=== PATIENT | female | born 1955 | race Caucasian/White ===

== ENCOUNTER → 2016-09-10 | Outpatient (CLI) | payer OTHER ==
[2015-02-05 14:05] VITALS: BP 151/90
[~2016-09-10] MED LIST: ASPI325T4 PO; CRESTOR10 MG PO; ESOM40CA PO; LEVO175T5 PO; LISI-334 PO
[2016-09-10 08:19] LABS: ALBUMIN 3.7 g/dL (3.4-5.0); CALCIUM 9.8 mg/dL (8.5-10.1); CHOLESTEROL/HDL RATIO 3.5; CREATININE 0.8 mg/dL (0.6-1.0); GFR 72.9; POTASSIUM 4.2 mmol/L (3.5-5.1); TOTAL BILIRUBIN 0.5 mg/dL (0.2-1.0); TOTAL PROTEIN 7.3 g/dL (6.4-8.2)
[2016-09-10 08:27] LABS: FREE T4 1.65 ng/dL (0.76-1.46)
== END | disposition home or self-care (01) ==
LOC: SPEC 07:31
PROVIDERS: ATTEND Nurse Practitioner
DX: I10 Essential (primary) hypertension (principal); E78.5 Hyperlipidemia, unspecified; E03.9 Hypothyroidism, unspecified
CPT/HCPCS: 36415; 80053; 80061; 84439; 84443

== ENCOUNTER → 2016-11-20 | Outpatient (CLI) | payer OTHER ==
[2015-02-05 14:05] VITALS: BP 151/90
[~2016-11-20] MED LIST changes: -ASPI325T4 PO; +ASPI325T8 PO
[2016-11-20 08:51] LABS: ALBUMIN 3.9 g/dL (3.4-5.0); ALBUMIN/GLOBULIN RATIO 1.1 (1.0-1.7); CALCIUM 9.2 mg/dL (8.5-10.1); CREATININE 0.9 mg/dL (0.6-1.0); GFR 63.7; TOTAL BILIRUBIN 0.5 mg/dL (0.2-1.0); TOTAL PROTEIN 7.3 g/dL (6.4-8.2)
[2016-11-20 09:07] LABS: CHOLESTEROL/HDL RATIO 3.4
[2016-11-20 10:25] LABS: BILIRUBIN,URINE NEGATIVE (NEG); GLUCOSE,URINE NEGATIVE (NEG); NITRITE,URINE NEGATIVE (NEG); PH,URINE 5.5; PROTEIN,URINE NEGATIVE (NEG-TRACE); UROBILINOGEN,URINE 0.2 mg/dL (0.2 mg/dL)
[2016-11-20 10:57] LABS: BACTERIA,URINE 0 /HPF (0-FEW); RBC,URINE 0 /HPF (0-2); SQUAMOUS EPITHELIAL CELL,UR FEW /LPF
[2016-11-20 16:21] LABS: THYROXINE 11.3 ug/dL (4.5-12.0)
[2016-11-21 17:20] LABS: VITAMIN D25(OH)TOTAL 25.7 ng/mL (30.0-100.0)
== END | disposition home or self-care (01) ==
LOC: SPEC 07:40
PROVIDERS: ATTEND Nurse Practitioner
DX: E03.9 Hypothyroidism, unspecified (principal); E78.5 Hyperlipidemia, unspecified; E55.9 Vitamin D deficiency, unspecified; R53.83 Other fatigue
CPT/HCPCS: 36415; 80053; 80061; 81001; 82306; 84436; 84443; 87086

== ENCOUNTER → 2017-04-08 | Outpatient (CLI) | payer OTHER ==
[2015-02-05 14:05] VITALS: BP 151/90
--- NOTE | 2017-04-08 11:19 | RAD ---
DATE: 04/08/2017 EXAM: DIGITAL SCREEN BILAT W/CAD HISTORY: Routine screening COMPARISON: . As mammograms from 2016 and 2014 This study was interpreted with the benefit of Computerized Aided Detection (CAD). FINDINGS: Breast Density: FATTY The Breast Parenchyma is primarily fatty replaced. Breast parenchyma level density A.. The skin and nipples are within normal limits. Benign bilateral calcifications. No suspicious calcifications, spiculated masses or areas of architectural distortion. IMPRESSION: No mammographic evidence of malignancy. Stable mammogram. BI-RADS CATEGORY: 2 BENIGN FINDING(S) RECOMMENDED FOLLOW-UP: 12M 12 MONTH FOLLOW-UP PQRS compliance statement: Patient information was entered into a reminder system with a target due date 04/08/2018 for the next mammogram. Mammography is a sensitive method for finding small breast cancers, but it does not detect them all and is not a substitute for careful clinical examination. A negative mammogram does not negate a clinically suspicious finding and should not result in delay in biopsying a clinically suspicious abnormality. "Our facility is accredited by the [employer] Mammography [employer]."
== END | disposition home or self-care (01) ==
LOC: MAMMO 09:57
PROVIDERS: ATTEND Family Medicine
DX: Z12.31 Encounter for screening mammogram for malignant neoplasm of breast (principal)
CPT/HCPCS: G0202; 77067

== ENCOUNTER → 2017-04-12 | Outpatient (CLI) | payer OTHER ==
[2015-02-05 14:05] VITALS: BP 151/90
[2017-04-12 10:49] LABS: ALBUMIN/GLOBULIN RATIO 1.3 (1.0-1.7); CALCIUM 9.7 mg/dL (8.5-10.1); CHOLESTEROL/HDL RATIO 2.7; GFR 56.2; POTASSIUM 3.7 mmol/L (3.5-5.1); TOTAL BILIRUBIN 0.5 mg/dL (0.2-1.0); TOTAL PROTEIN 7.2 g/dL (6.4-8.2)
== END | disposition home or self-care (01) ==
LOC: LAB 10:01
PROVIDERS: ATTEND Nurse Practitioner
DX: Z13.1 Encounter for screening for diabetes mellitus (principal); E03.9 Hypothyroidism, unspecified; E78.5 Hyperlipidemia, unspecified
CPT/HCPCS: 36415; 80053; 80061; 83036; 84436; 84443

== ENCOUNTER → 2018-04-11 | Outpatient (CLI) | payer OTHER ==
[2015-02-05 14:05] VITALS: BP 151/90
--- NOTE | 2018-04-12 09:12 | RAD ---
DATE: 04/11/2018 EXAM: MAMMO CARLOS SCREENING BILATERAL HISTORY: Routine screening COMPARISON: 04/08/2017 This study was interpreted with the benefit of Computerized Aided Detection (CAD). Breast Density: FATTY The breast parenchyma is primarily fatty replaced. Breast parenchyma level density A. FINDINGS: 2-D and 3-D tomosynthesis imaging was performed in CC and MLO projections. No new or enlarging breast densities are seen. Benign type calcifications are present. No suspicious microcalcifications have developed. IMPRESSION: Stable mammograms without evidence of malignancy. BI-RADS CATEGORY: 2 BENIGN FINDING(S) RECOMMENDED FOLLOW-UP: 12M 12 MONTH FOLLOW-UP PQRS compliance statement: Patient information was entered into a reminder system with a target due date for the next mammogram. Mammography is a sensitive method for finding small breast cancers, but it does not detect them all and is not a substitute for careful clinical examination. A negative mammogram does not negate a clinically suspicious finding and should not result in delay in biopsying a clinically suspicious abnormality. "Our facility is accredited by the [employer] Mammography Program."
== END | disposition home or self-care (01) ==
LOC: MAMMO 08:27
PROVIDERS: ATTEND Family Medicine
DX: Z12.31 Encounter for screening mammogram for malignant neoplasm of breast (principal)
CPT/HCPCS: 77063; 77067

== ENCOUNTER → 2018-05-23 | Outpatient (CLI) | payer OTHER ==
[2015-02-05 14:05] VITALS: BP 151/90
[~2018-05-23] MED LIST changes: +CHOL10003 PO; +CRESTOR20 MG PO; +LEVO150T5 PO; +PANT20TA2 PO; +SUMA100T4 PO
[2018-05-23 09:52] LABS: BASO # 0.1 x10^3/uL (0.0-0.2); BASO % 1 % (0-3); EOS # 0.1 x10^3/uL (0.0-0.7); EOS % 1 % (0-3); HEMATOCRIT 46.7 % (36.0-47.0); HEMOGLOBIN 16.2 g/dL (12.0-15.5); LYMPH # 2.6 x10^3/uL (1.0-4.8); LYMPH % 34 % (24-48); MEAN CORPUSCULAR HEMOGLOBIN 33 pg (25-35); MEAN CORPUSCULAR HGB CONC 35 g/dL (31-37); MEAN CORPUSCULAR VOLUME 95 fL (79-100); MONO # 0.5 x10^3/uL (0.0-1.1); MONO % 7 % (0-9); NEUT # 4.3 x10^3uL (1.8-7.7); NEUT % 57 % (31-73); PLATELET COUNT 170 x10^3/uL (140-400); RED BLOOD COUNT 4.93 x10^6/uL (3.50-5.40); RED CELL DISTRIBUTION WIDTH 13.1 % (11.5-14.5); WHITE BLOOD COUNT 7.6 x10^3/uL (4.0-11.0)
[2018-05-23 10:04] LABS: PROTHROMBIN TIME PATIENT 12.3 SEC (11.7-14.0)
[2018-05-23 10:08] LABS: ALBUMIN 3.8 g/dL (3.4-5.0); CALCIUM 9.9 mg/dL (8.5-10.1); POTASSIUM 4.2 mmol/L (3.5-5.1)
[2018-05-23 13:24] LABS: BILIRUBIN,URINE NEGATIVE (NEG); CLARITY,URINE CLEAR; COLOR,URINE YELLOW; NITRITE,URINE NEGATIVE (NEG); PH,URINE 6.5; PROTEIN,URINE NEGATIVE (NEG-TRACE); UROBILINOGEN,URINE 0.2 mg/dL (0.2 mg/dL)
[2018-05-23 13:33] LABS: BACTERIA,URINE 0 /HPF (0-FEW); RBC,URINE 0 /HPF (0-2); SQUAMOUS EPITHELIAL CELL,UR FEW /LPF; WBC,URINE 0 /HPF (0-4)
--- NOTE | 2018-05-23 13:44 | EKG ---
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
--- NOTE | 2018-05-23 18:11 | RAD ---
EXAM: PA and Lateral Views of the Chest DATE: 05/23/2018 2:08 PM INDICATION: pre-op knee replacement 06/07, hypertension COMPARISON: No Prior FINDINGS: The heart is not enlarged. Mediastinal and hilar contours are normal. Aortic calcifications are seen. No focal parenchymal airspace opacity. No pleural effusion or pneumothorax. IMPRESSION: No evidence for acute cardiopulmonary process. Electronically signed by: Gregor Snell MD (05/23/2018 6:07 PM) [facility]
== END | disposition home or self-care (01) ==
LOC: SURGPAT 14:16
PROVIDERS: ATTEND Orthopaedic Surgery
DX: Z01.818 Encounter for other preprocedural examination (principal); M17.11 Unilateral primary osteoarthritis, right knee; I70.0 Atherosclerosis of aorta; E78.5 Hyperlipidemia, unspecified
CPT/HCPCS: 36415; 71046; 80048; 81001; 82040; 85025; 85610; 85651; 85730; 87641; 93005

== ENCOUNTER 2019-05-12 00:24 | Inpatient (IN) | payer OTHER ==
[~2019-05-12] VITALS: Ht 160 cm; Wt 109.8 kg
[~2019-05-12 00:24] MED LIST changes: +HYDR-2759 PO; +WARF4TAB68 PO
[2019-05-12 01:15] LABS: BASO % 0 % (0-3); EOS % 1 % (0-3); HEMATOCRIT 42.8 % (36.0-47.0); HEMOGLOBIN 14.2 g/dL (12.0-15.5); LYMPH # 1.4 x10^3/uL (1.0-4.8); LYMPH % 19 % (24-48); MEAN CORPUSCULAR HEMOGLOBIN 30 pg (25-35); MEAN CORPUSCULAR HGB CONC 33 g/dL (31-37); MEAN CORPUSCULAR VOLUME 89 fL (79-100); MONO # 0.5 x10^3/uL (0.0-1.1); MONO % 6 % (0-9); NEUT # 5.7 x10^3/uL (1.8-7.7); NEUT % 74 % (31-73); PLATELET COUNT 195 x10^3/uL (140-400); RED BLOOD COUNT 4.79 x10^6/uL (3.50-5.40); WHITE BLOOD COUNT 7.7 x10^3/uL (4.0-11.0)
[2019-05-12 01:20] LABS: CALCIUM 9.1 mg/dL (8.5-10.1); CREATININE 1.1 mg/dL (0.6-1.0); POTASSIUM 3.6 mmol/L (3.5-5.1)
[2019-05-12 01:25] LABS: ALBUMIN 3.4 g/dL (3.4-5.0); ALBUMIN/GLOBULIN RATIO 1.2 (1.0-1.7); MAGNESIUM 1.5 mg/dL (1.8-2.4); TOTAL BILIRUBIN 0.5 mg/dL (0.2-1.0); TOTAL PROTEIN 6.2 g/dL (6.4-8.2)
--- NOTE | 2019-05-12 01:42 | PHYS DOC ---
Past Medical History Past Medical History: GERD, High Cholesterol, Hypertension, Hypothyroid, Migraines Past Surgical History: Knee Replacement Additional Past Surgical Histo: D&C, JAW SURGERY, RIGHT KNEE REPLACEMENT Alcohol Use: None Drug Use: None Adult General Chief Complaint Chief Complaint: DIZZY/LIGHT HEADED HPI HPI 64-year-old female with underlying history of hypertension, hypothyroidism presents to the emergency department with complaints of dizziness that started around 10 PM. This was sudden onset, she states the dizziness comes in waves. Nausea associated with it. She states the room started spinning. She denies any fever, headache. Movements of her eyes makes the dizziness worse. Review of Systems Review of Systems Constitutional: Denies fever or chills [] Eyes: Denies change in visual acuity, redness, or eye pain [] HENT: Denies nasal congestion or sore throat [] Respiratory: Denies cough or shortness of breath [] Cardiovascular: No additional information not addressed in HPI [] GI: Denies abdominal pain, + nausea, no vomiting, bloody stools or diarrhea [] : Denies dysuria or hematuria [] Neurologic: Denies headache, focal weakness or sensory changes [] All other systems were reviewed and found to be within normal limits, except as documented in this note. Current Medications Current Medications Current Medications Medications (Trade) Dose Ordered Sig/Rikki Start Time Stop Time Status Last Admin Dose Admin Info (CONTRAST GIVEN -- Rx MONITORING) 1 each PRN DAILY PRN 05/12/19 02:30 05/14/19 02:29 Iohexol (Omnipaque 350 Mg/ml) 75 ml 1X ONCE 05/12/19 02:30 05/12/19 02:31 DC 05/12/19 02:00 75 ML Magnesium Sulfate 50 ml @ 25 mls/hr 1X ONCE 05/12/19 03:00 05/12/19 04:59 DC 05/12/19 03:03 25 MLS/HR Meclizine HCl (Antivert) 25 mg 1X ONCE 05/12/19 04:00 05/12/19 04:01 DC 05/12/19 04:23 25 MG Ondansetron HCl (Zofran) 4 mg 1X ONCE 05/12/19 04:30 05/12/19 04:31 DC 05/12/19 04:23 4 MG Allergies Allergies Allergies Coded Allergies Type Severity Reaction Last Updated Verified codeine Allergy Intermediate Hives, tongue swelling, lortab ok 06/07/18 Yes Physical Exam Physical Exam Constitutional: Well developed, well nourished, no acute distress, non-toxic appearance. [] HENT: Normocephalic, atraumatic, bilateral external ears normal, oropharynx moist, no oral exudates, nose normal. [] Eyes: PERRLA, EOMI, conjunctiva normal, no discharge. [] Neck: Normal range of motion, no tenderness, supple, no stridor. [] Cardiovascular:Heart rate regular rhythm, no murmur [] Lungs & Thorax: Bilateral breath sounds clear to auscultation [] Abdomen: Bowel sounds normal, soft, no tenderness, no masses, no pulsatile masses. [] Skin: Warm, dry, no erythema, no rash. [] Back: No tenderness, no CVA tenderness. [] Extremities: No tenderness, no cyanosis, no clubbing, ROM intact, no edema. [] Neurologic: Alert and oriented X 3, normal motor function, normal sensory function, no focal deficits noted. [] Psychologic: Affect normal, judgement normal, mood normal. [] Current Patient Data Vital Signs Vital Signs Date Time Temp Pulse Resp B/P (MAP) Pulse Ox O2 Delivery O2 Flow Rate FiO2 05/12/19 00:25 97.5 89 20 142/91 (108) 98 Room Air 97.5 Lab Values Laboratory Tests Test 05/12/19 01:04 05/12/19 01:42 White Blood Count 7.7 x10^3/uL (4.0-11.0) Red Blood Count 4.79 x10^6/uL (3.50-5.40) Hemoglobin 14.2 g/dL (12.0-15.5) Hematocrit 42.8 % (36.0-47.0) Mean Corpuscular Volume 89 fL (79-100) Mean Corpuscular Hemoglobin 30 pg (25-35) Mean Corpuscular Hemoglobin Concent 33 g/dL (31-37) Red Cell Distribution Width 14.0 % (11.5-14.5) Platelet Count 195 x10^3/uL (140-400) Neutrophils (%) (Auto) 74 % (31-73) H Lymphocytes (%) (Auto) 19 % (24-48) L Monocytes (%) (Auto) 6 % (0-9) Eosinophils (%) (Auto) 1 % (0-3) Basophils (%) (Auto) 0 % (0-3) Neutrophils # (Auto) 5.7 x10^3/uL (1.8-7.7) Lymphocytes # (Auto) 1.4 x10^3/uL (1.0-4.8) Monocytes # (Auto) 0.5 x10^3/uL (0.0-1.1) Eosinophils # (Auto) 0.0 x10^3/uL (0.0-0.7) Basophils # (Auto) 0.0 x10^3/uL (0.0-0.2) Sodium Level 138 mmol/L (136-145) Potassium Level 3.6 mmol/L (3.5-5.1) Chloride Level 105 mmol/L (98-107) Carbon Dioxide Level 25 mmol/L (21-32) Anion Gap 8 (6-14) Blood Urea Nitrogen 18 mg/dL (7-20) Creatinine 1.1 mg/dL (0.6-1.0) H Estimated GFR (Cockcroft-Gault) 50.0 BUN/Creatinine Ratio 16 (6-20) Glucose Level 141 mg/dL (70-99) H Calcium Level 9.1 mg/dL (8.5-10.1) Magnesium Level 1.5 mg/dL (1.8-2.4) L Total Bilirubin 0.5 mg/dL (0.2-1.0) Aspartate Amino Transferase (AST) 17 U/L (15-37) Alanine Aminotransferase (ALT) 20 U/L (14-59) Alkaline Phosphatase 69 U/L (46-116) Total Protein 6.2 g/dL (6.4-8.2) L Albumin 3.4 g/dL (3.4-5.0) Albumin/Globulin Ratio 1.2 (1.0-1.7) Urine Collection Type Unknown Urine Color Yellow Urine Clarity Cloudy Urine pH 7.0 Urine Specific [place] 1.015 Urine Protein Negative mg/dL (NEG-TRACE) Urine Glucose (UA) Negative mg/dL (NEG) Urine Ketones (Stick) 15 mg/dL (NEG) Urine Blood Negative (NEG) Urine Nitrite Negative (NEG) Urine Bilirubin Negative (NEG) Urine Urobilinogen Dipstick 0.2 mg/dL (0.2 mg/dL) Urine Leukocyte Esterase Negative (NEG) Urine RBC 1-2 /HPF (0-2) Urine WBC 1-4 /HPF (0-4) Urine Squamous Epithelial Cells Mod /LPF Urine Bacteria 0 /HPF (0-FEW) Urine Mucus Mod /LPF Laboratory Tests 05/12/19 01:04 Laboratory Tests 05/12/19 01:04 EKG EKG [] Radiology/Procedures Radiology/Procedures [facility] [address] [place] [address] IMAGING REPORT Signed PATIENT: BRYN MOE ACCOUNT: [id number] : 1955 LOCATION: ER AGE: 64 SEX: F EXAM STATUS: REG ER ORD. PHYSICIAN: ANITA KUHN MD REASON: Dizziness, PROCEDURE: CT ANGIOGRAPHY HEAD AND NECK STUDY: CT angiography of the head and neck INDICATION: Dizziness. COMPARISON: None. TECHNIQUE: Axial CT imaging of the head and neck utilizing angiography protocol and performed after the intravenous administration of 75 cc Omnipaque 350 contrast. Multiplanar reformats and 3D MIP acquisitions were obtained. Encountered areas of stenosis are measured per NASCET criteria. One or more of the following individualized dose reduction techniques were utilized for this examination: 1. Automated exposure control 2. Adjustment of the mA and/or kV according to patient size 3. Use of iterative reconstruction technique. FINDINGS: CTA NECK: The great vessel origins are not included in the [id number]. Patent bilateral common carotid arteries. Mild calcific atherosclerosis at the left bifurcation without flow-limiting stenosis. No flow-limiting stenosis of the right bifurcation. Patent vertebral artery origins. Mild dominance of the left vertebral artery. No dissection or stenosis involving either extracranial vertebral artery. CTA HEAD: The intracranial portion of the study is degraded due to bolus timing and there is poor opacification of the peripheral vasculature. Patent intracranial internal carotid arteries. No flow-limiting stenosis or branch vessel occlusion seen to involve either anterior or middle cerebral arteries throughout the proximal portions. The branches are not well evaluated distally. Dominant left intracranial vertebral artery. Left more so than right calcific atherosclerosis. There appears to be moderate stenosis of the dominant left vertebral artery distal to the region of calcific atherosclerosis such as seen on image 60 series 4. Intermittent luminal irregularity of the nondominant intracranial vertebral artery. Both vertebral arteries contribute to basilar flow. The basilar artery is patent. The right P1 posterior cerebral artery segment is very small in caliber however there appears to be a patent posterior communicating artery with larger caliber of the P2 segment. The posterior tibial arteries are not well evaluated past P2. MISCELLANEOUS: Multifactorial degenerative changes scattered throughout the cervical spine. Bony neural foraminal encroachment is most pronounced on the left at C3-C4 and on the right at C4-C5. Intracranial contents are not well evaluated by technique. IMPRESSION: 1. The intracranial portion of the study is degraded due to bolus timing and there is poor opacification of the distal anterior and posterior cerebral circulations. 2. No flow-limiting stenosis or dissection seen to involve the extracranial carotid or vertebral arteries. 3. 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 Intermittent luminal irregularity of the nondominant right intracranial vertebral artery favored related to atherosclerotic disease. Both vertebral arteries contribute to basilar flow. 4. The right P1 posterior cerebral artery segment is very small in size but this appears related to persistent physiology. The P2 segments remain patent however beyond P2 is not well evaluated. No branch vessel occlusion involving the adequately assessed anterior circulation. If there is concern for an acute ischemic event, MRI is recommended. 5. Multilevel cervical degenerative changes with varying degrees of neural foraminal encroachment appearing severe at a few levels, as above. Electronically signed by: ROXANNE HEAD MD (05/12/2019 3:39 AM) [id number] DICTATED and SIGNED BY: ROXANNE HEAD MD DATE: 05/12/19 0339 [] Course & Med Decision Making Course & Med Decision Making Pertinent Labs and Imaging studies reviewed. (See chart for details) []64-year-old female with underlying history of hypertension, hypothyroidism presents to the emergency department with complaints of dizziness that started around 10 PM. This was sudden onset, she states the dizziness comes in waves. Nausea associated with it. She states the room started spinning. She denies any fever, headache. Movements of her eyes makes the dizziness worse. Labs/Imaging reviewed Magnesium low - replaced in ER CTA negative for acute process Zofran provided by EMS with improvement Dizziness in ER improved however worsened again with ambulation, return of nausea meclizine 25mg po x 1 Given continued symptoms will admit and plan further evaluation with neuro consult Moises Disclaimer Moises Disclaimer This electronic medical record was generated, in whole or in part, using a voice recognition dictation system. Departure Departure Impression: Primary Impression: Dizziness Additional Impression: Nausea & vomiting Disposition: 09 ADMITTED INPATIENT Admitting Physician: NADINE Condition: STABLE Referrals: SOHAM BALL (PCP) Problem Qualifiers Additional Impression: Nausea & vomiting Vomiting type: unspecified Vomiting Intractability: unspecified Qualified Codes: R11.2 - Nausea with vomiting, unspecified ANITA KUHN MD May 12, 2019 01:42
[2019-05-12 01:51] LABS: BILIRUBIN,URINE NEGATIVE (NEG); CLARITY,URINE CLOUDY; COLOR,URINE YELLOW; NITRITE,URINE NEGATIVE (NEG); PROTEIN,URINE NEGATIVE (NEG-TRACE); UROBILINOGEN,URINE 0.2 mg/dL (0.2 mg/dL)
[2019-05-12 01:54] LABS: BACTERIA,URINE 0 /HPF (0-FEW)
[2019-05-12 01:55] LABS: SQUAMOUS EPITHELIAL CELL,UR MOD /LPF
[2019-05-12] MEDS ORDERED: IOHEXOL 350 MG/ML 100 ML VIAL. IV ONE (02:30)
[2019-05-12] MEDS ORDERED: CONTRAST GIVEN. MC PRN (02:30)
[2019-05-12] MEDS ORDERED: MAGNESIUM SULFATE 2GM 50 ML IV ONE (03:00)
--- NOTE | 2019-05-12 03:42 | RAD ---
STUDY: CT angiography of the head and neck INDICATION: Dizziness. COMPARISON: None. TECHNIQUE: Axial CT imaging of the head and neck utilizing angiography protocol and performed after the intravenous administration of 75 cc Omnipaque 350 contrast. Multiplanar reformats and 3D MIP acquisitions were obtained. Encountered areas of stenosis are measured per NASCET criteria. One or more of the following individualized dose reduction techniques were utilized for this examination: 1. Automated exposure control 2. Adjustment of the mA and/or kV according to patient size 3. Use of iterative reconstruction technique. FINDINGS: CTA NECK: The great vessel origins are not included in the [id number]. Patent bilateral common carotid arteries. Mild calcific atherosclerosis at the left bifurcation without flow-limiting stenosis. No flow-limiting stenosis of the right bifurcation. Patent vertebral artery origins. Mild dominance of the left vertebral artery. No dissection or stenosis involving either extracranial vertebral artery. CTA HEAD: The intracranial portion of the study is degraded due to bolus timing and there is poor opacification of the peripheral vasculature. Patent intracranial internal carotid arteries. No flow-limiting stenosis or branch vessel occlusion seen to involve either anterior or middle cerebral arteries throughout the proximal portions. The branches are not well evaluated distally. Dominant left intracranial vertebral artery. Left more so than right calcific atherosclerosis. There appears to be moderate stenosis of the dominant left vertebral artery distal to the region of calcific atherosclerosis such as seen on image 60 series 4. Intermittent luminal irregularity of the nondominant intracranial vertebral artery. Both vertebral arteries contribute to basilar flow. The basilar artery is patent. The right P1 posterior cerebral artery segment is very small in caliber however there appears to be a patent posterior communicating artery with larger caliber of the P2 segment. The posterior tibial arteries are not well evaluated past P2. MISCELLANEOUS: Multifactorial degenerative changes scattered throughout the cervical spine. Bony neural foraminal encroachment is most pronounced on the left at C3-C4 and on the right at C4-C5. Intracranial contents are not well evaluated by technique. IMPRESSION: 1. The intracranial portion of the study is degraded due to bolus timing and there is poor opacification of the distal anterior and posterior cerebral circulations. 2. No flow-limiting stenosis or dissection seen to involve the extracranial carotid or vertebral arteries. 3. 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 Intermittent luminal irregularity of the nondominant right intracranial vertebral artery favored related to atherosclerotic disease. Both vertebral arteries contribute to basilar flow. 4. The right P1 posterior cerebral artery segment is very small in size but this appears related to persistent physiology. The P2 segments remain patent however beyond P2 is not well evaluated. No branch vessel occlusion involving the adequately assessed anterior circulation. If there is concern for an acute ischemic event, MRI is recommended. 5. Multilevel cervical degenerative changes with varying degrees of neural foraminal encroachment appearing severe at a few levels, as above. Electronically signed by: ROXANNE HEAD MD (05/12/2019 3:39 AM) [facility]
[2019-05-12] MEDS ORDERED: MECLIZINE HCL 12.5 MG TABLET. PO ONE (04:00)
[2019-05-12] MEDS ORDERED: ONDANSETRON PF 4 MG/2 ML VIAL. IV ONE (04:30)
[2019-05-12] MEDS ORDERED: ACETAMINOPHEN 325 MG TABLET. PO PRN ×2 (05:30→14:30)
[2019-05-12] MEDS ORDERED: ONDANSETRON PF 4 MG/2 ML VIAL. IV PRN (05:30)
[2019-05-12 07:00] VITALS: BP 138/79
--- NOTE | 2019-05-12 10:37 | NUR ---
SW following. Discussed with RN, pt is from home, works for [employer]. RN advised no SW needs at this time. SW will continue to follow.
[2019-05-12 10:57] LABS: BARBITURATES NEG (NEG); BENZODIAZEPINES NEG (NEG); CANNABINOIDS NEG (NEG); COCAINE NEG (NEG); METHADONE NEG (NEG); OPIATES NEG (NEG); PHENCYCLIDINE NEG (NEG)
[2019-05-12 11:00] VITALS: BP 145/74
[2019-05-12 11:02] LABS: AMPHETAMINE/METHAMPHETAMINE NEG (NEG)
[2019-05-12] MEDS ORDERED: LORazepam 1 MG TABLET PO PRN (11:45)
[2019-05-12] MEDS ORDERED: ONDANSETRON PF 4 MG/2 ML VIAL. IVP PRN (11:45)
--- NOTE | 2019-05-12 11:54 | PDOC1 ---
History and Physical Date of Admission Date of Admission DATE: 05/12/19 TIME: 11:53 Identification/Chief Complaint Chief Complaint seen in er , 64-year-old female with underlying history of hypertension, hypothyroidism presents to the emergency department with complaints of dizziness that started around 10 PM. This was sudden onset, she states the dizziness comes in waves. notes Nausea // She states the room started spinning. 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 just distal to a region of calcific atherosclerosis seen on cta head Past Medical History Past Medical History Past Medical History Past Medical History Past Medical History: GERD, High Cholesterol, Hypertension, Hypothyroid, Migraines, OBESITY Past Surgical History: Knee Replacement Additional Past Surgical Histo: D&C, JAW SURGERY, RIGHT KNEE REPLACEMENT Alcohol Use: None Drug Use: None FHX HTN Cardiovascular: HTN Musculoskeletal: Osteoarthritis Family History Family History: Hypertension Social History Smoke: No ALCOHOL: none Drugs: None Current Problem List Problem List Problems Medical Problems: (1) Dizziness Status: Acute (2) Nausea & vomiting Status: Acute Current Medications Current Medications Current Medications Iohexol (Omnipaque 350 Mg/ml) 75 ml 1X ONCE IV Last administered on 05/12/19at 02:00; Start 05/12/19 at 02:30; Stop 05/12/19 at 02:31; Status DC Info (CONTRAST GIVEN -- Rx MONITORING) 1 each PRN DAILY PRN MC SEE COMMENTS; Start 05/12/19 at 02:30; Stop 05/14/19 at 02:29 Magnesium Sulfate 50 ml @ 25 mls/hr 1X ONCE IV Last administered on 05/12/19at 03:03; Start 05/12/19 at 03:00; Stop 05/12/19 at 04:59; Status DC Meclizine HCl (Antivert) 25 mg 1X ONCE PO Last administered on 05/12/19at 04:23; Start 05/12/19 at 04:00; Stop 05/12/19 at 04:01; Status DC Ondansetron HCl (Zofran) 4 mg 1X ONCE IV Last administered on 05/12/19at 04:23; Start 05/12/19 at 04:30; Stop 05/12/19 at 04:31; Status DC Ondansetron HCl (Zofran) 4 mg PRN Q8HRS PRN IV NAUSEA/VOMITING 1ST CHOICE; Start 05/12/19 at 05:30; Stop 05/13/19 at 05:29 Acetaminophen (Tylenol) 650 mg PRN Q4HRS PRN PO FEVER; Start 05/12/19 at 05:30; Stop 05/13/19 at 05:29 Meclizine HCl (Antivert) 25 mg TID PO ; Start 05/12/19 at 14:00 Lorazepam (Ativan) 1 mg PRN Q6HRS PRN PO ANXIETY / AGITATION; Start 05/12/19 at 11:45 Ondansetron HCl (Zofran) 4 mg PRN Q6HRS PRN IVP NAUSEA/VOMITING; Start 05/12/19 at 11:45 Thiamine Mononitrate (Vitamin B-1) 100 mg DAILY PO ; Start 05/12/19 at 12:00 Active Scripts Active Reported Coumadin (Warfarin Sodium) 4 Mg Tablet 1 Tab PO DAILY Hydrocodone-Acetamin 5-325 mg (Hydrocodone/Acetaminophen) 1 Each Tablet 1 Each PO Q4HRS Sumatriptan Succinate 100 Mg Tablet 100 Mg PO ONCE PRN Vitamin D3 (Cholecalciferol (Vitamin D3)) 1,000 Unit Tablet 2,000 Unit PO DAILY Crestor (Rosuvastatin Calcium) 20 Mg Tablet 20 Mg PO HS Protonix (Pantoprazole Sodium) 20 Mg Tablet.dr 40 Mg PO BID Levothyroxine Sodium 150 Mcg Tablet 1 Tab PO DAILY Allergies Allergies: Coded Allergies: codeine (Verified Allergy, Intermediate, Hives, tongue swelling, lortab ok, 06/07/18) ROS Review of System Review of Systems Review of Systems Constitutional: Denies fever or chills [] Eyes: Denies change in visual acuity, redness, or eye pain [] HENT: Denies nasal congestion or sore throat [] Respiratory: Denies cough or shortness of breath [] Cardiovascular: No additional information not addressed in HPI [] GI: Denies abdominal pain, + nausea, no vomiting, bloody stools or diarrhea [] : Denies dysuria or hematuria [] Neurologic: Denies headache, focal weakness or sensory changes [] 14 pt systems were reviewed and found to be within normal limits, except as documented PSYCHOLOGICAL ROS: No: Anxiety, Behavioral Disorder, Concentration difficultie, Decreased libido, Depression, Disorientation, Hallucinations, Hostility, Irritablity, Memory difficulties, Mood Swings, Obsessive thoughts, Physical a buse, Sexual abuse, Sleep disturbances, Suicidal ideation, Other Respiratory: No: Cough, Hemoptysis, Orthopnea, Pleuritic Pain, Shortness of breath, SOB with excertion, Sputum Changes, Stridor, Tachypnea, Wheezing, Other Cardiovascular: No Chest Pain, No Palpitations, No Orthopnea, No Paroxysmal Noc. Dyspnea, No Edema, No Lt Headedness, No Other Gastrointestinal: Yes Nausea, Yes Vomiting; No Abdominal Pain, No Diarrhea, No Constipation, No Melena, No Hematochezia, No Other Musculoskeletal: Yes Gait Disturbance Neurological: Yes Dizziness, Yes Gait Disturbance Physical Exam Physical Exam Physical Exam Physical Exam Constitutional: Well developed, well nourished, no acute distress, non-toxic appearance. [] HENT: Normocephalic, atraumatic, bilateral external ears normal, oropharynx moist, no oral exudates, nose normal. [] Eyes: PERRLA, EOMI, conjunctiva normal, no discharge. [] Neck: Normal range of motion, no tenderness, supple, no stridor. [] Cardiovascular:Heart rate regular rhythm, no murmur [] Lungs & Thorax: Bilateral breath sounds clear to auscultation [] Abdomen: Bowel sounds normal, soft, no tenderness, no masses, no pulsatile masses. [] Skin: Warm, dry, no erythema, no rash. [] Back: No tenderness, no CVA tenderness. [] Extremities: No tenderness, no cyanosis, no clubbing, ROM intact, no edema. [] Neurologic: Alert and oriented X 3, normal motor function, normal sensory function, no focal deficits noted. [] Psychologic: Affect normal, judgement normal, mood normal. [] General: Alert, Oriented X3, Cooperative, No acute distress HEENT: Atraumatic, EOMI Lungs: Clear to auscultation, Normal air movement Heart: no murmurs Breasts: Not examined Abdomen: Soft PELVIC: Examination not indicated Extremities: No cyanosis Neuro: Normal speech, Cranial nerves 3-12 NL Psych/Mental Status: Mental status NL, Mood NL Vitals Vitals Vital Signs Date Time Temp Pulse Resp B/P (MAP) Pulse Ox O2 Delivery O2 Flow Rate FiO2 05/12/19 07:00 98.0 80 16 138/79 (98) 95 Room Air 98.0 Labs Labs Laboratory Tests Test 05/12/19 01:04 05/12/19 01:42 White Blood Count 7.7 x10^3/uL (4.0-11.0) Red Blood Count 4.79 x10^6/uL (3.50-5.40) Hemoglobin 14.2 g/dL (12.0-15.5) Hematocrit 42.8 % (36.0-47.0) Mean Corpuscular Volume 89 fL (79-100) Mean Corpuscular Hemoglobin 30 pg (25-35) Mean Corpuscular Hemoglobin Concent 33 g/dL (31-37) Red Cell Distribution Width 14.0 % (11.5-14.5) Platelet Count 195 x10^3/uL (140-400) Neutrophils (%) (Auto) 74 % (31-73) Lymphocytes (%) (Auto) 19 % (24-48) Monocytes (%) (Auto) 6 % (0-9) Eosinophils (%) (Auto) 1 % (0-3) Basophils (%) (Auto) 0 % (0-3) Neutrophils # (Auto) 5.7 x10^3/uL (1.8-7.7) Lymphocytes # (Auto) 1.4 x10^3/uL (1.0-4.8) Monocytes # (Auto) 0.5 x10^3/uL (0.0-1.1) Eosinophils # (Auto) 0.0 x10^3/uL (0.0-0.7) Basophils # (Auto) 0.0 x10^3/uL (0.0-0.2) Sodium Level 138 mmol/L (136-145) Potassium Level 3.6 mmol/L (3.5-5.1) Chloride Level 105 mmol/L (98-107) Carbon Dioxide Level 25 mmol/L (21-32) Anion Gap 8 (6-14) Blood Urea Nitrogen 18 mg/dL (7-20) Creatinine 1.1 mg/dL (0.6-1.0) Estimated GFR (Cockcroft-Gault) 50.0 BUN/Creatinine Ratio 16 (6-20) Glucose Level 141 mg/dL (70-99) Calcium Level 9.1 mg/dL (8.5-10.1) Magnesium Level 1.5 mg/dL (1.8-2.4) Total Bilirubin 0.5 mg/dL (0.2-1.0) Aspartate Amino Transf (AST/SGOT) 17 U/L (15-37) Alanine Aminotransferase (ALT/SGPT) 20 U/L (14-59) Alkaline Phosphatase 69 U/L (46-116) Total Protein 6.2 g/dL (6.4-8.2) Albumin 3.4 g/dL (3.4-5.0) Albumin/Globulin Ratio 1.2 (1.0-1.7) Urine Collection Type Unknown Urine Color Yellow Urine Clarity Cloudy Urine pH 7.0 Urine Specific [place] 1.015 Urine Protein Negative mg/dL (NEG-TRACE) Urine Glucose (UA) Negative mg/dL (NEG) Urine Ketones (Stick) 15 mg/dL (NEG) Urine Blood Negative (NEG) Urine Nitrite Negative (NEG) Urine Bilirubin Negative (NEG) Urine Urobilinogen Dipstick 0.2 mg/dL (0.2 mg/dL) Urine Leukocyte Esterase Negative (NEG) Urine RBC 1-2 /HPF (0-2) Urine WBC 1-4 /HPF (0-4) Urine Squamous Epithelial Cells Mod /LPF Urine Bacteria 0 /HPF (0-FEW) Urine Mucus Mod /LPF Urine Opiates Screen Neg (NEG) Urine Methadone Screen Neg (NEG) Urine Barbiturates Neg (NEG) Urine Phencyclidine Screen Neg (NEG) Urine Amphetamine/Methamphetamine Neg (NEG) Urine Benzodiazepines Screen Neg (NEG) Urine Cocaine Screen Neg (NEG) Urine Cannabinoids Screen Neg (NEG) Urine Ethyl Alcohol Neg (NEG) Laboratory Tests Test 05/12/19 01:04 05/12/19 01:42 White Blood Count 7.7 x10^3/uL (4.0-11.0) Red Blood Count 4.79 x10^6/uL (3.50-5.40) Hemoglobin 14.2 g/dL (12.0-15.5) Hematocrit 42.8 % (36.0-47.0) Mean Corpuscular Volume 89 fL (79-100) Mean Corpuscular Hemoglobin 30 pg (25-35) Mean Corpuscular Hemoglobin Concent 33 g/dL (31-37) Red Cell Distribution Width 14.0 % (11.5-14.5) Platelet Count 195 x10^3/uL (140-400) Neutrophils (%) (Auto) 74 % (31-73) Lymphocytes (%) (Auto) 19 % (24-48) Monocytes (%) (Auto) 6 % (0-9) Eosinophils (%) (Auto) 1 % (0-3) Basophils (%) (Auto) 0 % (0-3) Neutrophils # (Auto) 5.7 x10^3/uL (1.8-7.7) Lymphocytes # (Auto) 1.4 x10^3/uL (1.0-4.8) Monocytes # (Auto) 0.5 x10^3/uL (0.0-1.1) Eosinophils # (Auto) 0.0 x10^3/uL (0.0-0.7) Basophils # (Auto) 0.0 x10^3/uL (0.0-0.2) Sodium Level 138 mmol/L (136-145) Potassium Level 3.6 mmol/L (3.5-5.1) Chloride Level 105 mmol/L (98-107) Carbon Dioxide Level 25 mmol/L (21-32) Anion Gap 8 (6-14) Blood Urea Nitrogen 18 mg/dL (7-20) Creatinine 1.1 mg/dL (0.6-1.0) Estimated GFR (Cockcroft-Gault) 50.0 BUN/Creatinine Ratio 16 (6-20) Glucose Level 141 mg/dL (70-99) Calcium Level 9.1 mg/dL (8.5-10.1) Magnesium Level 1.5 mg/dL (1.8-2.4) Total Bilirubin 0.5 mg/dL (0.2-1.0) Aspartate Amino Transf (AST/SGOT) 17 U/L (15-37) Alanine Aminotransferase (ALT/SGPT) 20 U/L (14-59) Alkaline Phosphatase 69 U/L (46-116) Total Protein 6.2 g/dL (6.4-8.2) Albumin 3.4 g/dL (3.4-5.0) Albumin/Globulin Ratio 1.2 (1.0-1.7) Urine Collection Type Unknown Urine Color Yellow Urine Clarity Cloudy Urine pH 7.0 Urine Specific [place] 1.015 Urine Protein Negative mg/dL (NEG-TRACE) Urine Glucose (UA) Negative mg/dL (NEG) Urine Ketones (Stick) 15 mg/dL (NEG) Urine Blood Negative (NEG) Urine Nitrite Negative (NEG) Urine Bilirubin Negative (NEG) Urine Urobilinogen Dipstick 0.2 mg/dL (0.2 mg/dL) Urine Leukocyte Esterase Negative (NEG) Urine RBC 1-2 /HPF (0-2) Urine WBC 1-4 /HPF (0-4) Urine Squamous Epithelial Cells Mod /LPF Urine Bacteria 0 /HPF (0-FEW) Urine Mucus Mod /LPF Urine Opiates Screen Neg (NEG) Urine Methadone Screen Neg (NEG) Urine Barbiturates Neg (NEG) Urine Phencyclidine Screen Neg (NEG) Urine Amphetamine/Methamphetamine Neg (NEG) Urine Benzodiazepines Screen Neg (NEG) Urine Cocaine Screen Neg (NEG) Urine Cannabinoids Screen Neg (NEG) Urine Ethyl Alcohol Neg (NEG) Images Images REASON: Dizziness, PROCEDURE: CT ANGIOGRAPHY HEAD AND NECK STUDY: CT angiography of the head and neck INDICATION: Dizziness. COMPARISON: None. TECHNIQUE: Axial CT imaging of the head and neck utilizing angiography protocol and performed after the intravenous administration of 75 cc Omnipaque 350 contrast. Multiplanar reformats and 3D MIP acquisitions were obtained. Encountered areas of stenosis are measured per NASCET criteria. One or more of the following individualized dose reduction techniques were utilized for this examination: 1. Automated exposure control 2. Adjustment of the mA and/or kV according to patient size 3. Use of iterative reconstruction technique. FINDINGS: CTA NECK: The great vessel origins are not included in the [id number]. Patent bilateral common carotid arteries. Mild calcific atherosclerosis at the left bifurcation without flow-limiting stenosis. No flow-limiting stenosis of the right bifurcation. Patent vertebral artery origins. Mild dominance of the left vertebral artery. No dissection or stenosis involving either extracranial vertebral artery. CTA HEAD: The intracranial portion of the study is degraded due to bolus timing and there is poor opacification of the peripheral vasculature. Patent intracranial internal carotid arteries. No flow-limiting stenosis or branch vessel occlusion seen to involve either anterior or middle cerebral arteries throughout the proximal portions. The branches are not well evaluated distally. Dominant left intracranial vertebral artery. Left more so than right calcific atherosclerosis. There appears to be moderate stenosis of the dominant left vertebral artery distal to the region of calcific atherosclerosis such as seen on image 60 series 4. Intermittent luminal irregularity of the nondominant intracranial vertebral artery. Both vertebral arteries contribute to basilar flow. The basilar artery is patent. The right P1 posterior cerebral artery segment is very small in caliber however there appears to be a patent posterior communicating artery with larger caliber of the P2 segment. The posterior tibial arteries are not well evaluated past P2. MISCELLANEOUS: Multifactorial degenerative changes scattered throughout the cervical spine. Bony neural foraminal encroachment is most pronounced on the left at C3-C4 and on the right at C4-C5. Intracranial contents are not well evaluated by technique. IMPRESSION: 1. The intracranial portion of the study is degraded due to bolus timing and there is poor opacification of the distal anterior and posterior cerebral circulations. 2. No flow-limiting stenosis or dissection seen to involve the extracranial carotid or vertebral arteries. 3. 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 Intermittent luminal irregularity of the nondominant right intracranial vertebral artery favored related to atherosclerotic disease. Both vertebral arteries contribute to basilar flow. 4. The right P1 posterior cerebral artery segment is very small in size but this appears related to persistent physiology. The P2 segments remain patent however beyond P2 is not well evaluated. No branch vessel occlusion involving the adequately assessed anterior circulation. If there is concern for an acute ischemic event, MRI is recommended. 5. Multilevel cervical degenerative changes with varying degrees of neural foraminal encroachment appearing severe at a few levels, as above. Electronically signed by: ROXANNE HEAD MD (05/12/2019 3:39 AM) [facility] DICTATED and SIGNED BY: ROXANNE HEAD MD DATE: 05/12/19 0339 VTE Prophylaxis Ordered VTE Prophylaxis Devices: Yes VTE Pharmacological Prophylaxi: Yes Assessment/Plan Assessment/Plan IMPRESSION: 1. The intracranial portion degraded due to bolus timing and there is poor opacification of the distal anterior and posterior cerebral circulations. on cta 2. No flow-limiting stenosis or dissection seen to involve the extracranial carotid or vertebral arteries. 3. 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 luminal irregularity of the nondominant right intracranial vertebral artery favored related to atherosclerotic disease. Both vertebral arteries contribute to basilar flow. 6. The right P1 posterior cerebral artery segment is very small in size but this appears related to persistent physiology. The P2 segments remain patent however beyond P2 is not well evaluated. No branch vessel occlusion involving the adequately assessed anterior circulation.{ If there is concern for an acute ischemic event, MRI is recommended. } 7. Multilevel cervical degenerative changes with varying degrees of neural foraminal encroachment appearing severe at a few levels, 8. HYPOMAGNESEMIA 9. MORBID OBESITY PLAN ADMIT TELE NEUROLOGY CONSULT REPLACE MG IV bedrest ASA PT/OT 74 MIN PT EXAM, CHART REVIEW, > 50% OF TIME SPENT WITH EXAM, CHART REVIEW, PT CARE COORDINATION FREDA ANGEL MD May 12, 2019 11:54
[2019-05-12] MEDS: THIAMINE 100 MG TABLET. PO SCH (13:01)
--- NOTE | 2019-05-12 14:21 | PDOC2 ---
NEUROLOGY CONSULT Date of Admission Date of Admission DATE: 05/12/19 TIME: 14:09 Reason for Consult Reason for Consult: IMPRESSION: Dizziness, sudden onset. Light headiness. Vertigo symptoms. Unbalance. HTN. Hypothyroidism. GERD. Chronic migraine headache, Hx. Obesity. RECOMMENDATIONS/PLAN: Brain MRI w/wo contrast. ASA daily. Meclizine 25 mg tid. Zofran 4 mg IV q6h PRN. Ativan 1 mg IV q4-6h PRN. Lab: see orders. OT/PT. HISTORY OF THE PRESENT ILLNESS: This is a 64-year-old female patient with history of hypertension, hypothyroidism who was brought to the emergency department of [facility] with complaints of sudden new onset symptoms of dizziness that started in the afternoon and again around 10 PM on 05/11/19. This was sudden onset, she states the dizziness comes in waves and associated with nausea. She stated that the room was spinning with sense of self spinning. She denies fever, headache. Move ments of her eyes makes the dizziness worse. PAST MEDICAL HISTORY: GERD, High Cholesterol, Hypertension, Hypothyroid, Migraines, OBESITY PAST SURGERY HISTORY: Knee Replacement, D&C, JAW SURGERY, RIGHT KNEE REPLACEMENT ALLERGY: NKDA Unknown MEDICATIONS: Refer to [facility] FAMILY HISTORY: HTN SOCIAL HISTORY: Lives alt home. Denies smoking, drinking, and illicit drug use. REVIEW OF SYSTEMS: Constitutional: Obesity. Head: No traumatic brain or head injury. Skin: No edema, or rash. Ear: No infection. Eyes: No vision loss or color blindness. Nose: No bleeding or purulent discharges. Hearing: No hearing decrease. Neck: No injury. Breast: No history of cancer, masses,or discharges. Cardiac: HTN. Pulmonary: No COPD. GI: GERD. Urinary/genital: UTI. Endocrinologic: Morbid obesity. Skeletomuscular: No muscular atrophy, deformity. Neurological: see HP. Psychiatric: Denies drug use/abuse. Otherwise, not [id number] review of systems. PHYSICAL EXAMINATION: General appearance is in subacute distress. HEENT: Normocephalic and nontraumatic. Eyes, nose, ears, and throat are unremarkable. Neck is supple. No lymphadenopathy. No bruits are heard over the carotid artery. No crepitus. Cardiovascular: S1, S2, regular rate and rhythm. Pulmonary: Clear to auscultation bilaterally. Abdomen: Bowel sounds are positive. Abdomen is soft, nontender, and nondistended. Extremities: No rash, lesions, or edema. No restriction of range of motion NEUROLOGICAL EXAMINATION: Alert Horizontal nystagmus elicited. Oriented to time, place and person. PERRL. EOMI. CN: no focal findings. Muscle tone: within normal. Muscle strength: 5 DTR: 2 Plantar reflex: Flexor response bilaterally Gait: not examined in bed. Sensory exam: no abnormal findings. No cerebellar signs elicited. F-T-N test fine. Current Medications Current Medications Current Medications Iohexol (Omnipaque 350 Mg/ml) 75 ml 1X ONCE IV Last administered on 05/12/19at 02:00; Start 05/12/19 at 02:30; Stop 05/12/19 at 02:31; Status DC Info (CONTRAST GIVEN -- Rx MONITORING) 1 each PRN DAILY PRN MC SEE COMMENTS; Start 05/12/19 at 02:30; Stop 05/14/19 at 02:29 Magnesium Sulfate 50 ml @ 25 mls/hr 1X ONCE IV Last administered on 05/12/19at 03:03; Start 05/12/19 at 03:00; Stop 05/12/19 at 04:59; Status DC Meclizine HCl (Antivert) 25 mg 1X ONCE PO Last administered on 05/12/19at 04:23; Start 05/12/19 at 04:00; Stop 05/12/19 at 04:01; Status DC Ondansetron HCl (Zofran) 4 mg 1X ONCE IV Last administered on 05/12/19at 04:23; Start 05/12/19 at 04:30; Stop 05/12/19 at 04:31; Status DC Ondansetron HCl (Zofran) 4 mg PRN Q8HRS PRN IV NAUSEA/VOMITING 1ST CHOICE; Start 05/12/19 at 05:30; Stop 05/13/19 at 05:29 Acetaminophen (Tylenol) 650 mg PRN Q4HRS PRN PO FEVER; Start 05/12/19 at 05:30; Stop 05/13/19 at 05:29 Meclizine HCl (Antivert) 25 mg TID PO ; Start 05/12/19 at 14:00 Lorazepam (Ativan) 1 mg PRN Q6HRS PRN PO ANXIETY / AGITATION Last administered on 05/12/19at 13:01; Start 05/12/19 at 11:45 Ondansetron HCl (Zofran) 4 mg PRN Q6HRS PRN IVP NAUSEA/VOMITING; Start 05/12/19 at 11:45 Thiamine Mononitrate (Vitamin B-1) 100 mg DAILY PO Last administered on 05/12/19at 13:01; Start 05/12/19 at 12:00 Active Scripts Active Reported Coumadin (Warfarin Sodium) 4 Mg Tablet 1 Tab PO DAILY Hydrocodone-Acetamin 5-325 mg (Hydrocodone/Acetaminophen) 1 Each Tablet 1 Each PO Q4HRS Sumatriptan Succinate 100 Mg Tablet 100 Mg PO ONCE PRN Vitamin D3 (Cholecalciferol (Vitamin D3)) 1,000 Unit Tablet 2,000 Unit PO DAILY Crestor (Rosuvastatin Calcium) 20 Mg Tablet 20 Mg PO HS Protonix (Pantoprazole Sodium) 20 Mg Tablet.dr 40 Mg PO BID Levothyroxine Sodium 150 Mcg Tablet 1 Tab PO DAILY Allergies Allergies: Allergies Coded Allergies Type Severity Reaction Last Updated Verified codeine Allergy Intermediate Hives, tongue swelling, lortab ok 06/07/18 Yes ROS Review of System The patient denies any associated fevers, chills, headache, ear pain, rhinorrhea, sore throat, stiff neck, productive cough, chest pain, shortness of breath, back or flank pain, abdominal pain, nausea, vomiting, diarrhea, constipation, dysuria, rash, numbness, weakness, tingling, incontinence, difficulty ambulating, or diaphoresis. Physical Exam Physical Exam General: Well developed, well nourished, no acute distress, well appearing HEENT: Pupils equally round and reactive to light, EOMI, no discharge, normal conjunctiva Neck: Supple, no nuchal rigidity, no JVD, trachea midline, no tenderness Cardiac: RRR, no murmurs, no gallops, no rubs Chest/Lungs: CTAB, no wheeze, no rhonchi, no crackles Abdomen: soft, non-distended, no guarding, no peritoneal signs, non-tender Back: No tenderness Extremities: no edema, pulses intact, non-tender,capillary refill <3 sec bilateral upper and lower extremities, Neuro: Alert and oriented x 4, no focal deficits, normal speech Vitals Vitals: Vital Signs Date Time Temp Pulse Resp B/P (MAP) Pulse Ox O2 Delivery O2 Flow Rate FiO2 05/12/19 11:00 98.3 73 16 145/74 (97) 95 Room Air 98.3 Labs Labs Laboratory Tests Test 05/12/19 01:04 05/12/19 01:42 White Blood Count 7.7 x10^3/uL (4.0-11.0) Red Blood Count 4.79 x10^6/uL (3.50-5.40) Hemoglobin 14.2 g/dL (12.0-15.5) Hematocrit 42.8 % (36.0-47.0) Mean Corpuscular Volume 89 fL (79-100) Mean Corpuscular Hemoglobin 30 pg (25-35) Mean Corpuscular Hemoglobin Concent 33 g/dL (31-37) Red Cell Distribution Width 14.0 % (11.5-14.5) Platelet Count 195 x10^3/uL (140-400) Neutrophils (%) (Auto) 74 % (31-73) Lymphocytes (%) (Auto) 19 % (24-48) Monocytes (%) (Auto) 6 % (0-9) Eosinophils (%) (Auto) 1 % (0-3) Basophils (%) (Auto) 0 % (0-3) Neutrophils # (Auto) 5.7 x10^3/uL (1.8-7.7) Lymphocytes # (Auto) 1.4 x10^3/uL (1.0-4.8) Monocytes # (Auto) 0.5 x10^3/uL (0.0-1.1) Eosinophils # (Auto) 0.0 x10^3/uL (0.0-0.7) Basophils # (Auto) 0.0 x10^3/uL (0.0-0.2) Sodium Level 138 mmol/L (136-145) Potassium Level 3.6 mmol/L (3.5-5.1) Chloride Level 105 mmol/L (98-107) Carbon Dioxide Level 25 mmol/L (21-32) Anion Gap 8 (6-14) Blood Urea Nitrogen 18 mg/dL (7-20) Creatinine 1.1 mg/dL (0.6-1.0) Estimated GFR (Cockcroft-Gault) 50.0 BUN/Creatinine Ratio 16 (6-20) Glucose Level 141 mg/dL (70-99) Calcium Level 9.1 mg/dL (8.5-10.1) Magnesium Level 1.5 mg/dL (1.8-2.4) Total Bilirubin 0.5 mg/dL (0.2-1.0) Aspartate Amino Transf (AST/SGOT) 17 U/L (15-37) Alanine Aminotransferase (ALT/SGPT) 20 U/L (14-59) Alkaline Phosphatase 69 U/L (46-116) Total Protein 6.2 g/dL (6.4-8.2) Albumin 3.4 g/dL (3.4-5.0) Albumin/Globulin Ratio 1.2 (1.0-1.7) Urine Collection Type Unknown Urine Color Yellow Urine Clarity Cloudy Urine pH 7.0 Urine Specific [place] 1.015 Urine Protein Negative mg/dL (NEG-TRACE) Urine Glucose (UA) Negative mg/dL (NEG) Urine Ketones (Stick) 15 mg/dL (NEG) Urine Blood Negative (NEG) Urine Nitrite Negative (NEG) Urine Bilirubin Negative (NEG) Urine Urobilinogen Dipstick 0.2 mg/dL (0.2 mg/dL) Urine Leukocyte Esterase Negative (NEG) Urine RBC 1-2 /HPF (0-2) Urine WBC 1-4 /HPF (0-4) Urine Squamous Epithelial Cells Mod /LPF Urine Bacteria 0 /HPF (0-FEW) Urine Mucus Mod /LPF Urine Opiates Screen Neg (NEG) Urine Methadone Screen Neg (NEG) Urine Barbiturates Neg (NEG) Urine Phencyclidine Screen Neg (NEG) Urine Amphetamine/Methamphetamine Neg (NEG) Urine Benzodiazepines Screen Neg (NEG) Urine Cocaine Screen Neg (NEG) Urine Cannabinoids Screen Neg (NEG) Urine Ethyl Alcohol Neg (NEG) Laboratory Tests Test 05/12/19 01:04 05/12/19 01:42 White Blood Count 7.7 x10^3/uL (4.0-11.0) Red Blood Count 4.79 x10^6/uL (3.50-5.40) Hemoglobin 14.2 g/dL (12.0-15.5) Hematocrit 42.8 % (36.0-47.0) Mean Corpuscular Volume 89 fL (79-100) Mean Corpuscular Hemoglobin 30 pg (25-35) Mean Corpuscular Hemoglobin Concent 33 g/dL (31-37) Red Cell Distribution Width 14.0 % (11.5-14.5) Platelet Count 195 x10^3/uL (140-400) Neutrophils (%) (Auto) 74 % (31-73) Lymphocytes (%) (Auto) 19 % (24-48) Monocytes (%) (Auto) 6 % (0-9) Eosinophils (%) (Auto) 1 % (0-3) Basophils (%) (Auto) 0 % (0-3) Neutrophils # (Auto) 5.7 x10^3/uL (1.8-7.7) Lymphocytes # (Auto) 1.4 x10^3/uL (1.0-4.8) Monocytes # (Auto) 0.5 x10^3/uL (0.0-1.1) Eosinophils # (Auto) 0.0 x10^3/uL (0.0-0.7) Basophils # (Auto) 0.0 x10^3/uL (0.0-0.2) Sodium Level 138 mmol/L (136-145) Potassium Level 3.6 mmol/L (3.5-5.1) Chloride Level 105 mmol/L (98-107) Carbon Dioxide Level 25 mmol/L (21-32) Anion Gap 8 (6-14) Blood Urea Nitrogen 18 mg/dL (7-20) Creatinine 1.1 mg/dL (0.6-1.0) Estimated GFR (Cockcroft-Gault) 50.0 BUN/Creatinine Ratio 16 (6-20) Glucose Level 141 mg/dL (70-99) Calcium Level 9.1 mg/dL (8.5-10.1) Magnesium Level 1.5 mg/dL (1.8-2.4) Total Bilirubin 0.5 mg/dL (0.2-1.0) Aspartate Amino Transf (AST/SGOT) 17 U/L (15-37) Alanine Aminotransferase (ALT/SGPT) 20 U/L (14-59) Alkaline Phosphatase 69 U/L (46-116) Total Protein 6.2 g/dL (6.4-8.2) Albumin 3.4 g/dL (3.4-5.0) Albumin/Globulin Ratio 1.2 (1.0-1.7) Urine Collection Type Unknown Urine Color Yellow Urine Clarity Cloudy Urine pH 7.0 Urine Specific [place] 1.015 Urine Protein Negative mg/dL (NEG-TRACE) Urine Glucose (UA) Negative mg/dL (NEG) Urine Ketones (Stick) 15 mg/dL (NEG) Urine Blood Negative (NEG) Urine Nitrite Negative (NEG) Urine Bilirubin Negative (NEG) Urine Urobilinogen Dipstick 0.2 mg/dL (0.2 mg/dL) Urine Leukocyte Esterase Negative (NEG) Urine RBC 1-2 /HPF (0-2) Urine WBC 1-4 /HPF (0-4) Urine Squamous Epithelial Cells Mod /LPF Urine Bacteria 0 /HPF (0-FEW) Urine Mucus Mod /LPF Urine Opiates Screen Neg (NEG) Urine Methadone Screen Neg (NEG) Urine Barbiturates Neg (NEG) Urine Phencyclidine Screen Neg (NEG) Urine Amphetamine/Methamphetamine Neg (NEG) Urine Benzodiazepines Screen Neg (NEG) Urine Cocaine Screen Neg (NEG) Urine Cannabinoids Screen Neg (NEG) Urine Ethyl Alcohol Neg (NEG) KIZZY SMITH MD May 12, 2019 14:20
[2019-05-12] MEDS ORDERED: cloNIDine HCL 0.1 MG TABLET PO PRN (14:30)
[2019-05-12] MEDS ORDERED: guaiFENesin ORAL 200 MG/10 ML LIQUID. PO PRN (14:30)
[2019-05-12] MEDS ORDERED: 0.9 % SODIUM CHLORIDE 10 ML DISP.SYRIN. IV PRN (14:30)
[2019-05-12] MEDS ORDERED: LORazepam 0.5 MG TABLET PO PRN (14:30)
[2019-05-12] MEDS ORDERED: DOCUSATE SODIUM 100 MG CAPSULE. PO PRN (14:30)
[2019-05-12] MEDS ORDERED: ALBUTEROL SULFATE 2.5 MG/3 ML NEBU. NEB PRN (14:30)
[2019-05-12 15:37] LABS: PROTHROMBIN TIME PATIENT 12.7 SEC (11.7-14.0)
[2019-05-12] MEDS: MECLIZINE HCL 12.5 MG TABLET. PO SCH ×2 (15:49→21:45)
[2019-05-12] MEDS: ASPIRIN CHEWABLE 81 MG TABLET. PO SCH (15:49)
[2019-05-12] MEDS ORDERED: GADOTERATE 5 MMOL/10ML VIAL. IVP ONE ×2 (16:00)
[2019-05-12 16:45] VITALS: BP 148/27
--- NOTE | 2019-05-12 16:45 | NUR ---
Pt transferred from . Report received from KYA Mcintyre. Pt transported via bed. All belongings with patient at the time of transfer. Pt comfortable, resting in bed, and VSS. Pt family at the bedside during transfer. Will continue to monitor.
[2019-05-12] MEDS: IV NORMAL SALINE 1000ML BAG 1,000 ML IV SCH (16:49)
[2019-05-12] MEDS: PANTOPRAZOLE 40 MG TABLET.DR. PO SCH (16:49)
--- NOTE | 2019-05-12 17:16 | RAD ---
MRI of the Brain without and with Contrast 05/12/2019 Clinical History: Acute dizziness with unsteadiness. Technique: Unenhanced T1-weighted sagittal and axial and FLAIR, T2-weighted, gradient echo and diffusion-weighted axial images of the brain were obtained. After the intravenous administration of 20 cc of Gadavist, enhanced T1-weighted axial, sagittal and coronal images of the brain were obtained. Findings: Comparison is made to the patient's CTA of the head performed earlier today. Images from the study are degraded by patient motion. There is generalized parenchymal atrophy. Patchy and small scattered areas of abnormally increased signal intensity are seen within the periventricular and subcortical white matter of both cerebral hemispheres on the FLAIR and T2-weighted images consistent with areas of mild small vessel ischemic disease. No acute parenchymal abnormality is seen. No abnormal area of contrast enhancement is noted. No extra-axial fluid collection is seen. There is no MRI evidence of acute ischemia/infarction. Mild mucosal thickening is seen scattered throughout the paranasal sinuses. There are minimal bilateral mastoid effusions. Normal flow voids are seen within the major vascular structures surrounding the brain parenchyma. Impression: No acute parenchymal abnormality is seen. Electronically signed by: Devyn Her MD (05/12/2019 5:13 PM) [id number]
[2019-05-12 20:01] VITALS: BP 135/71
[2019-05-12] MEDS: HYDROcodone/APAP 5/325MG 1 TAB TABLET PO PRN (21:44)
[2019-05-12] MEDS: ATORVASTATIN CALCIUM 40 MG TABLET. PO SCH (21:45)
[2019-05-12] MEDS: ENOXAPARIN 40 MG/0.4 ML SYRINGE. SQ SCH (21:45)
[2019-05-12 23:30] VITALS: BP 125/79
[2019-05-13 03:30] VITALS: BP 118/59
[2019-05-13] MEDS: IV NORMAL SALINE 1000ML BAG 1,000 ML IV SCH ×2 (04:50→16:36)
[2019-05-13] MEDS: LEVOTHYROXINE 150 MCG TABLET PO SCH (06:50)
[2019-05-13 07:20] VITALS: BP 144/83
[2019-05-13 08:28] LABS: BASO % 1 % (0-3); EOS # 0.1 x10^3/uL (0.0-0.7); EOS % 1 % (0-3); HEMATOCRIT 42.7 % (36.0-47.0); HEMOGLOBIN 14.1 g/dL (12.0-15.5); LYMPH # 1.8 x10^3/uL (1.0-4.8); LYMPH % 33 % (24-48); MEAN CORPUSCULAR HEMOGLOBIN 30 pg (25-35); MEAN CORPUSCULAR HGB CONC 33 g/dL (31-37); MEAN CORPUSCULAR VOLUME 90 fL (79-100); MONO # 0.4 x10^3/uL (0.0-1.1); MONO % 8 % (0-9); NEUT # 3.1 x10^3/uL (1.8-7.7); NEUT % 57 % (31-73); PLATELET COUNT 193 x10^3/uL (140-400); RED BLOOD COUNT 4.74 x10^6/uL (3.50-5.40); RED CELL DISTRIBUTION WIDTH 14.2 % (11.5-14.5); WHITE BLOOD COUNT 5.5 x10^3/uL (4.0-11.0)
[2019-05-13 08:53] LABS: ALBUMIN 3.2 g/dL (3.4-5.0); ALBUMIN/GLOBULIN RATIO 1.1 (1.0-1.7); CALCIUM 9.1 mg/dL (8.5-10.1); CREATININE 0.8 mg/dL (0.6-1.0); GFR 72.2; POTASSIUM 4.1 mmol/L (3.5-5.1); TOTAL BILIRUBIN 0.6 mg/dL (0.2-1.0); TOTAL PROTEIN 6.2 g/dL (6.4-8.2)
[2019-05-13] MEDS ORDERED: WARFARIN 4 MG TABLET. PO SCH (09:00)
[2019-05-13] MEDS: ASPIRIN CHEWABLE 81 MG TABLET. PO SCH (09:13)
[2019-05-13] MEDS: MECLIZINE HCL 12.5 MG TABLET. PO SCH ×3 (09:14→20:03)
[2019-05-13] MEDS: PANTOPRAZOLE 40 MG TABLET.DR. PO SCH ×2 (09:14→16:36)
[2019-05-13] MEDS: ENOXAPARIN 40 MG/0.4 ML SYRINGE. SQ SCH ×2 (09:14→20:04)
[2019-05-13] MEDS: THIAMINE 100 MG TABLET. PO SCH (09:14)
[2019-05-13] MEDS: CHOLECALCIFEROL (VITAMIN D3) 1,000 UNIT TABLET PO SCH (09:14)
[2019-05-13] MEDS: ONDANSETRON PF 4 MG/2 ML VIAL. IV PRN ×2 (09:17→18:05)
[2019-05-13 11:02] VITALS: BP 138/76
--- NOTE | 2019-05-13 11:45 | PDOC ---
[employer] PROGRESS NOTE Chief Complaint Chief Complaint Vertigo Stenosis of Vertebral Artery GERD High Cholesterol Hypertension Hypothyroid Migraines Obesity Osteoarthritis History of Present Illness History of Present Illness 05/13/19 Pt seen and examined Pt was lying in bed with a towel wrapped around her Pt still c/o vertigo DW pt DW RN Reviewed pt's chart Vitals/I&O Vitals/I&O: Vital Signs Date Time Temp Pulse Resp B/P (MAP) Pulse Ox O2 Delivery O2 Flow Rate FiO2 05/13/19 11:02 97.6 57 18 138/76 (96) 96 Room Air 97.6 I & O 05/12/19 05/12/19 05/13/19 15:00 23:00 07:00 Intake Total 240 ml Balance 240 ml Physical Exam General: Alert, Oriented X3, Cooperative, No acute distress Heart: Regular rate, Normal S1, Normal S2 Lungs: Clear Abdomen: Soft, No tenderness, No hepatosplenomegaly Extremities: No cyanosis Skin: No rashes, No breakdown Labs Labs: Laboratory Tests Test 05/13/19 08:00 White Blood Count 5.5 x10^3/uL (4.0-11.0) Red Blood Count 4.74 x10^6/uL (3.50-5.40) Hemoglobin 14.1 g/dL (12.0-15.5) Hematocrit 42.7 % (36.0-47.0) Mean Corpuscular Volume 90 fL (79-100) Mean Corpuscular Hemoglobin 30 pg (25-35) Mean Corpuscular Hemoglobin Concent 33 g/dL (31-37) Red Cell Distribution Width 14.2 % (11.5-14.5) Platelet Count 193 x10^3/uL (140-400) Neutrophils (%) (Auto) 57 % (31-73) Lymphocytes (%) (Auto) 33 % (24-48) Monocytes (%) (Auto) 8 % (0-9) Eosinophils (%) (Auto) 1 % (0-3) Basophils (%) (Auto) 1 % (0-3) Neutrophils # (Auto) 3.1 x10^3/uL (1.8-7.7) Lymphocytes # (Auto) 1.8 x10^3/uL (1.0-4.8) Monocytes # (Auto) 0.4 x10^3/uL (0.0-1.1) Eosinophils # (Auto) 0.1 x10^3/uL (0.0-0.7) Basophils # (Auto) 0.0 x10^3/uL (0.0-0.2) Sodium Level 141 mmol/L (136-145) Potassium Level 4.1 mmol/L (3.5-5.1) Chloride Level 107 mmol/L (98-107) Carbon Dioxide Level 27 mmol/L (21-32) Anion Gap 7 (6-14) Blood Urea Nitrogen 9 mg/dL (7-20) Creatinine 0.8 mg/dL (0.6-1.0) Estimated GFR (Cockcroft-Gault) 72.2 BUN/Creatinine Ratio 11 (6-20) Glucose Level 98 mg/dL (70-99) Calcium Level 9.1 mg/dL (8.5-10.1) Total Bilirubin 0.6 mg/dL (0.2-1.0) Aspartate Amino Transf (AST/SGOT) 17 U/L (15-37) Alanine Aminotransferase (ALT/SGPT) 18 U/L (14-59) Alkaline Phosphatase 66 U/L (46-116) Total Protein 6.2 g/dL (6.4-8.2) Albumin 3.2 g/dL (3.4-5.0) Albumin/Globulin Ratio 1.1 (1.0-1.7) Review of Systems Review of Systems: C/o dizziness No c/o CP Assessment and Plan Assessmemt and Plan Problems Medical Problems: (1) Dizziness Status: Acute (2) Nausea & vomiting Status: Acute Assessment Vertigo Stenosis of Vertebral Artery GERD High Cholesterol Hypertension Hypothyroid Migraines Obesity Osteoarthritis Plan Antivert Reviewed pt's brain MRI: No acute parenchymal abnormality is seen IVF Labs Home meds DVT Prophylaxis PT/OT Full code Appreciate subspecialist input Comment Review of Relevant I have reviewed the following items sabina (where applicable) has been applied. Medications: Current Medications Medications (Trade) Dose Ordered Sig/Rikki Route PRN Reason Start Time Stop Time Status Last Admin Dose Admin Meclizine HCl (Antivert) 25 mg TID PO 05/12/19 14:00 05/13/19 09:14 Lorazepam (Ativan) 1 mg PRN Q6HRS PRN PO ANXIETY / AGITATION 05/12/19 11:45 1/3/20 13:01 Thiamine Mononitrate (Vitamin B-1) 100 mg DAILY PO 05/12/19 12:00 05/13/19 09:14 Aspirin (Children'S Aspirin) 81 mg DAILYWBKFT PO 05/12/19 15:00 05/13/19 09:13 Sodium Chloride 1,000 ml @ 80 mls/hr [id number] IV 05/12/19 14:25 05/13/19 04:50 Ondansetron HCl (Zofran) 4 mg PRN Q4HRS PRN IV NAUSEA/VOMITING 05/12/19 14:30 05/13/19 09:17 Acetaminophen (Tylenol) 650 mg PRN Q4HRS PRN PO TEMP OVER 100.4F OR MILD PAIN 05/12/19 14:30 05/13/19 06:50 Enoxaparin Sodium (Lovenox 40mg Syringe) 40 mg Q12HR SQ 05/12/19 21:00 05/13/19 09:14 Vitamin D (Vitamin D3) 2,000 unit DAILY PO 05/13/19 09:00 05/13/19 09:14 Acetaminophen/ Hydrocodone Bitart (Lortab 5/325) 1 tab PRN Q4HRS PRN PO MODERATE PAIN, SEVERE PAIN 05/12/19 16:00 05/12/19 21:44 Levothyroxine Sodium (Synthroid) 150 mcg DAILY07 PO 05/13/19 07:00 05/13/19 06:50 Pantoprazole Sodium (Protonix) 40 mg BIDAC PO 05/12/19 16:30 05/13/19 09:14 Atorvastatin Calcium (Lipitor) 80 mg QHS PO 05/12/19 21:00 05/12/19 21:45 Gadoterate Meglumine (Dotarem) 10 ml 1X ONCE IVP 05/12/19 16:00 05/12/19 16:01 DC 05/12/19 16:30 Gadoterate Meglumine (Dotarem) 10 ml 1X ONCE IVP 05/12/19 16:00 05/12/19 16:01 DC 05/12/19 16:30 CASTLE,NIAL K III DO May 13, 2019 11:45
[2019-05-13] MEDS ORDERED: MECLIZINE HCL 12.5 MG TABLET. PO PRN (12:00)
[2019-05-13] MEDS: HYDROcodone/APAP 5/325MG 1 TAB TABLET PO PRN ×2 (12:15→20:06)
--- NOTE | 2019-05-13 12:38 | EKG ---
[facility] [address] [place] [address] Test Date: 2019-05-13 Test Time: 12:33:09 Pat Name: BRYN MOE Department: Room: 560 1 Gender: F Hospital Admissions Officer: : 1955 Requested By: FREDA ANGEL Order Number: [id number] Reading MD: Measurements Intervals [place] Rate: 68 P: 38 [place]: 178 QRS: -21 QRSD: 72 T: 24 QT: 400 QTc: 430 Interpretive Statements SINUS RHYTHM LEFTWARD AXIS QRS(T) CONTOUR ABNORMALITY CONSISTENT WITH SEPTAL INFARCT PROBABLY OLD ABNORMAL ECG RI6.01 Compared to ECG 05/23/2018 13:36:03 Left-axis deviation now present Myocardial infarct finding now present Poor R-wave progression no longer present
[2019-05-13 15:00] VITALS: BP 115/54
[2019-05-13 19:15] VITALS: BP 141/56
[2019-05-13] MEDS: ATORVASTATIN CALCIUM 40 MG TABLET. PO SCH (20:03)
--- NOTE | 2019-05-13 20:47 | RAD ---
EXAM: CAROTID DOPPLER SONOGRAM. HISTORY: Dizziness, blurred vision. TECHNIQUE: Lindo scale and color Doppler sonographic evaluation of the neck with spectral waveform analysis was performed and static images are submitted for review. FINDINGS: RIGHT: The peak systolic velocity within the common carotid artery is 88 cm/sec. The peak systolic velocity within the internal carotid artery is 107 cm/sec and the end diastolic velocity within the internal carotid artery is 39 cm/sec. The ICA/CCA ratio is 1.1. Grayscale images demonstrate no grayscale stenosis. LEFT: The peak systolic velocity within the common carotid artery is 99 cm/sec. The peak systolic velocity within the internal carotid artery is 120 cm/sec and the end diastolic velocity within the internal carotid artery is 39 cm/sec. The ICA/CCA ratio is 1.2. Grayscale images demonstrate no grayscale stenosis. There is antegrade flow within both vertebral arteries. IMPRESSION: 1. No evidence of hemodynamically significant stenosis. PQRS Compliance Statement - Stenosis calculations for CT, MR and conventional angiography are based upon measurement of the distal ICA diameter in accordance with the NASCET methodology. Stenosis calculations for carotid ultrasound studies are derived from validated velocity criteria which are known to correlate with the NASCET methodology. Electronically signed by: Yaz Rudd MD (05/13/2019 8:44 PM) [facility]
--- NOTE | 2019-05-13 20:50 | PDOC ---
PROGRESS NOTES Assessment Assessment Dizziness, sudden onset. Light headiness. Vertigo symptoms. Unbalance. HTN. Hypothyroidism. GERD. Chronic migraine headache, Hx. Obesity. No evidence of acute CVa this time. RECOMMENDATIONS/PLAN: ASA daily. Meclizine 25 mg tid. Zofran 4 mg q6h PRN. Ativan 1 mg tid. Carotid A US + Doppler. OT/PT. HISTORY OF THE PRESENT ILLNESS: This is a 64-year-old female patient with history of hypertension, hypothyroidism who was brought to the emergency department of [facility] with complaints of sudden new onset symptoms of dizziness that started in the afternoon and again around 10 PM on 05/11/19. This was sudden onset, she states the dizziness comes in waves and associated with nausea. She stated that the room was spinning with sense of self spinning. She denies fever, headache. Movements of her eyes makes the dizziness worse. 05/13/19: still has vertigo. PAST MEDICAL HISTORY: GERD, High Cholesterol, Hypertension, Hypothyroid, Migraines, OBESITY PAST SURGERY HISTORY: Knee Replacement, D&C, JAW SURGERY, RIGHT KNEE REPLACEMENT ALLERGY: NKDA Unknown MEDICATIONS: Refer to [facility] HISTORY: HTN SOCIAL HISTORY: Lives alt home. Denies smoking, drinking, and illicit drug use. REVIEW OF SYSTEMS: Constitutional: Obesity. Head: No traumatic brain or head injury. Skin: No edema, or rash. Ear: No infection. Eyes: No vision loss or color blindness. Nose: No bleeding or purulent discharges. Hearing: No hearing decrease. Neck: No injury. Breast: No history of cancer, masses,or discharges. Cardiac: HTN. Pulmonary: No COPD. GI: GERD. Urinary/genital: UTI. Endocrinologic: Morbid obesity. Skeletomuscular: No muscular atrophy, deformity. Neurological: see HP. Psychiatric: Denies drug use/abuse. Otherwise, not [id number] review of systems. PHYSICAL EXAMINATION: General appearance is in subacute distress. HEENT: Normocephalic and nontraumatic. Eyes, nose, ears, and throat are unremarkable. Neck is supple. No lymphadenopathy. No bruits are heard over the carotid artery. No crepitus. Cardiovascular: S1, S2, regular rate and rhythm. Pulmonary: Clear to auscultation bilaterally. Abdomen: Bowel sounds are positive. Abdomen is soft, nontender, and nondistended. Extremities: No rash, lesions, or edema. No restriction of range of motion NEUROLOGICAL EXAMINATION: Alert Horizontal nystagmus elicited. Oriented to time, place and person. PERRL. EOMI. CN: no focal findings. Muscle tone: within normal. Muscle strength: 5 DTR: 2 Plantar reflex: Flexor response bilaterally Gait: not examined in bed. Sensory exam: no abnormal findings. No cerebellar signs elicited. F-T-N test fine. Objective Objective Vital Signs Date Time Temp Pulse Resp B/P (MAP) Pulse Ox O2 Delivery O2 Flow Rate FiO2 05/13/19 19:15 98.3 69 16 141/56 (84) 94 Room Air 98.3 Intake and Output 05/13/19 07:00 Intake Total 240 ml Balance 240 ml Intake Oral 240 ml # Voids 4 Vitals Signs Vitals VS - Last 72 Hours, by Label Date Time Temp Pulse Resp B/P (MAP) Pulse Ox O2 Delivery O2 Flow Rate FiO2 05/13/19 19:15 98.3 69 16 141/56 (84) 94 Room Air 98.3 05/13/19 15:00 97.4 67 16 115/54 (74) 95 Room Air 97.4 05/13/19 12:15 Room Air 05/13/19 11:02 97.6 57 18 138/76 (96) 96 Room Air 97.6 05/13/19 08:00 Room Air 05/13/19 07:20 97.7 65 17 144/83 (103) 92 Room Air 97.7 05/13/19 03:30 97.6 60 18 118/59 (78) 96 Room Air 97.6 05/12/19 23:30 97.7 69 18 125/79 (94) 96 Room Air 97.7 05/12/19 22:44 Room Air 05/12/19 21:44 Room Air 05/12/19 20:01 97.8 76 16 135/71 (92) 93 Room Air 97.8 05/12/19 20:00 Room Air 05/12/19 16:45 98.8 78 18 148/27 (67) 93 Room Air 98.8 05/12/19 11:00 98.3 73 16 145/74 (97) 95 Room Air 98.3 05/12/19 07:30 Room Air 05/12/19 07:00 98.0 80 16 138/79 (98) 95 Room Air 98.0 Laboratory Laboratory Laboratory Tests Test 05/13/19 08:00 White Blood Count 5.5 x10^3/uL (4.0-11.0) Red Blood Count 4.74 x10^6/uL (3.50-5.40) Hemoglobin 14.1 g/dL (12.0-15.5) Hematocrit 42.7 % (36.0-47.0) Mean Corpuscular Volume 90 fL (79-100) Mean Corpuscular Hemoglobin 30 pg (25-35) Mean Corpuscular Hemoglobin Concent 33 g/dL (31-37) Red Cell Distribution Width 14.2 % (11.5-14.5) Platelet Count 193 x10^3/uL (140-400) Neutrophils (%) (Auto) 57 % (31-73) Lymphocytes (%) (Auto) 33 % (24-48) Monocytes (%) (Auto) 8 % (0-9) Eosinophils (%) (Auto) 1 % (0-3) Basophils (%) (Auto) 1 % (0-3) Neutrophils # (Auto) 3.1 x10^3/uL (1.8-7.7) Lymphocytes # (Auto) 1.8 x10^3/uL (1.0-4.8) Monocytes # (Auto) 0.4 x10^3/uL (0.0-1.1) Eosinophils # (Auto) 0.1 x10^3/uL (0.0-0.7) Basophils # (Auto) 0.0 x10^3/uL (0.0-0.2) Sodium Level 141 mmol/L (136-145) Potassium Level 4.1 mmol/L (3.5-5.1) Chloride Level 107 mmol/L (98-107) Carbon Dioxide Level 27 mmol/L (21-32) Anion Gap 7 (6-14) Blood Urea Nitrogen 9 mg/dL (7-20) Creatinine 0.8 mg/dL (0.6-1.0) Estimated GFR (Cockcroft-Gault) 72.2 BUN/Creatinine Ratio 11 (6-20) Glucose Level 98 mg/dL (70-99) Calcium Level 9.1 mg/dL (8.5-10.1) Total Bilirubin 0.6 mg/dL (0.2-1.0) Aspartate Amino Transf (AST/SGOT) 17 U/L (15-37) Alanine Aminotransferase (ALT/SGPT) 18 U/L (14-59) Alkaline Phosphatase 66 U/L (46-116) Total Protein 6.2 g/dL (6.4-8.2) Albumin 3.2 g/dL (3.4-5.0) Albumin/Globulin Ratio 1.1 (1.0-1.7) Medication Medications Current Medications Atorvastatin Calcium (Lipitor) 80 mg QHS PO Last administered on 05/13/19at 20:03; Start 05/12/19 at 21:00 Enoxaparin Sodium (Lovenox 40mg Syringe) 40 mg Q12HR SQ Last administered on 05/13/19at 20:04; Start 05/12/19 at 21:00 Levothyroxine Sodium (Synthroid) 150 mcg DAILY07 PO Last administered on 05/13/19at 06:50; Start 05/13/19 at 07:00 Meclizine HCl (Antivert) 25 mg PRN Q8HRS PRN PO VERTIGO Last administered on 05/13/19at 12:15; Start 05/13/19 at 12:00 Vitamin D (Vitamin D3) 2,000 unit DAILY PO Last administered on 05/13/19at 09:14; Start 05/13/19 at 09:00 Warfarin Sodium (Coumadin) 4 mg DAILY PO ; Start 05/13/19 at 09:00; Stop 05/12/19 at 14:33; Status DC Comment Review of Relevant I have reviewed the following items sabina (where applicable) has been applied. KIZZY SMITH MD May 13, 2019 20:50
[2019-05-13] MEDS: LORazepam 1 MG TABLET PO SCH (21:47)
[2019-05-13 23:38] VITALS: BP 129/59
[2019-05-14 03:40] VITALS: BP 120/71
[2019-05-14] MEDS: IV NORMAL SALINE 1000ML BAG 1,000 ML IV SCH ×2 (04:22→16:20)
[2019-05-14 05:41] LABS: BASO % 1 % (0-3); EOS # 0.1 x10^3/uL (0.0-0.7); EOS % 2 % (0-3); HEMATOCRIT 42.2 % (36.0-47.0); HEMOGLOBIN 14.2 g/dL (12.0-15.5); LYMPH # 1.6 x10^3/uL (1.0-4.8); LYMPH % 29 % (24-48); MEAN CORPUSCULAR HEMOGLOBIN 30 pg (25-35); MEAN CORPUSCULAR HGB CONC 34 g/dL (31-37); MEAN CORPUSCULAR VOLUME 90 fL (79-100); MONO # 0.5 x10^3/uL (0.0-1.1); MONO % 8 % (0-9); NEUT # 3.5 x10^3/uL (1.8-7.7); NEUT % 61 % (31-73); PLATELET COUNT 173 x10^3/uL (140-400); RED BLOOD COUNT 4.71 x10^6/uL (3.50-5.40); WHITE BLOOD COUNT 5.8 x10^3/uL (4.0-11.0)
[2019-05-14 06:00] LABS: CALCIUM 9.1 mg/dL (8.5-10.1); CREATININE 0.9 mg/dL (0.6-1.0); POTASSIUM 4.1 mmol/L (3.5-5.1)
[2019-05-14] MEDS: LEVOTHYROXINE 150 MCG TABLET PO SCH (06:17)
[2019-05-14 07:05] VITALS: BP 141/75
[2019-05-14] MEDS: ASPIRIN CHEWABLE 81 MG TABLET. PO SCH (08:30)
[2019-05-14] MEDS: PANTOPRAZOLE 40 MG TABLET.DR. PO SCH ×2 (08:30→16:20)
[2019-05-14] MEDS: CHOLECALCIFEROL (VITAMIN D3) 1,000 UNIT TABLET PO SCH (08:30)
[2019-05-14] MEDS: ENOXAPARIN 40 MG/0.4 ML SYRINGE. SQ SCH ×2 (08:31→20:58)
[2019-05-14] MEDS: LORazepam 1 MG TABLET PO SCH ×2 (08:31→13:44)
[2019-05-14] MEDS: THIAMINE 100 MG TABLET. PO SCH (08:38)
[2019-05-14] MEDS: MECLIZINE HCL 12.5 MG TABLET. PO SCH ×3 (08:41→20:58)
--- NOTE | 2019-05-14 11:11 | PDOC ---
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 A GERD High Cholesterol Hypertension Hypothyroid Migraines Obesity Osteoarthritis History of Present Illness History of Present Illness 05/14/19 Pt seen and examined Pt lying in bed still complaining of vertigo DW pt Reviewed pt's chart 05/13/19 Pt seen and examined Pt was lying in bed with a towel wrapped around her Pt still c/o vertigo DW pt DW RN Reviewed pt's chart Vitals/I&O Vitals/I&O: Vital Signs Date Time Temp Pulse Resp B/P (MAP) Pulse Ox O2 Delivery O2 Flow Rate FiO2 05/14/19 08:00 Room Air 05/14/19 07:05 97.9 97 18 141/75 (97) 96 97.9 I & O 05/13/19 05/13/19 05/14/19 15:00 23:00 07:00 Intake Total 250 ml Output Total 300 ml 550 ml Balance -50 ml -550 ml Physical Exam General: Alert, Oriented X3, Cooperative, No acute distress Heart: Regular rate, Normal S1, Normal S2 Lungs: Clear Abdomen: Soft, No tenderness, No hepatosplenomegaly Extremities: No clubbing, No cyanosis Skin: No rashes, No breakdown Labs Labs: Laboratory Tests Test 05/14/19 05:20 White Blood Count 5.8 x10^3/uL (4.0-11.0) Red Blood Count 4.71 x10^6/uL (3.50-5.40) Hemoglobin 14.2 g/dL (12.0-15.5) Hematocrit 42.2 % (36.0-47.0) Mean Corpuscular Volume 90 fL (79-100) Mean Corpuscular Hemoglobin 30 pg (25-35) Mean Corpuscular Hemoglobin Concent 34 g/dL (31-37) Red Cell Distribution Width 14.0 % (11.5-14.5) Platelet Count 173 x10^3/uL (140-400) Neutrophils (%) (Auto) 61 % (31-73) Lymphocytes (%) (Auto) 29 % (24-48) Monocytes (%) (Auto) 8 % (0-9) Eosinophils (%) (Auto) 2 % (0-3) Basophils (%) (Auto) 1 % (0-3) Neutrophils # (Auto) 3.5 x10^3/uL (1.8-7.7) Lymphocytes # (Auto) 1.6 x10^3/uL (1.0-4.8) Monocytes # (Auto) 0.5 x10^3/uL (0.0-1.1) Eosinophils # (Auto) 0.1 x10^3/uL (0.0-0.7) Basophils # (Auto) 0.0 x10^3/uL (0.0-0.2) Sodium Level 140 mmol/L (136-145) Potassium Level 4.1 mmol/L (3.5-5.1) Chloride Level 107 mmol/L (98-107) Carbon Dioxide Level 29 mmol/L (21-32) Anion Gap 4 (6-14) Blood Urea Nitrogen 8 mg/dL (7-20) Creatinine 0.9 mg/dL (0.6-1.0) Estimated GFR (Cockcroft-Gault) 63.0 Glucose Level 101 mg/dL (70-99) Calcium Level 9.1 mg/dL (8.5-10.1) Review of Systems Review of Systems: Pt c/o dizziness No c/o CP Assessment and Plan Assessmemt and Plan Problems Medical Problems: (1) Dizziness Status: Acute (2) Nausea & vomiting Status: Acute Assessment Vertigo Moderate stenosis of L intracranial Vertebral Artery GERD High Cholesterol Hypertension Hypothyroid Migraines Obesity Osteoarthritis Plan Continue antivert IVF Labs Home meds DVT Prophylaxis PT/OT Full code Await further neuro input Comment Review of Relevant I have reviewed the following items sabina (where applicable) has been applied. Medications: Current Medications Medications (Trade) Dose Ordered Sig/Rikki Route PRN Reason Start Time Stop Time Status Last Admin Dose Admin Meclizine HCl (Antivert) 25 mg PRN Q8HRS PRN PO VERTIGO 05/13/19 12:00 05/13/19 12:15 Lorazepam (Ativan) 1 mg TID PO 05/13/19 21:00 05/14/19 08:31 VINAY EATON III DO May 14, 2019 11:11
[2019-05-14 11:13] VITALS: BP 158/90
[2019-05-14] MEDS: HYDROcodone/APAP 5/325MG 1 TAB TABLET PO PRN (14:30)
[2019-05-14 14:52] VITALS: BP 143/87
--- NOTE | 2019-05-14 16:29 | PDOC ---
PROGRESS NOTES Assessment Assessment Dizziness. Light headiness. Vertigo. HTN. Hypothyroidism. GERD. Chronic migraine headache, Hx. Obesity. No evidence of acute CVA this time. RECOMMENDATIONS/PLAN: ASA daily. Meclizine 25 mg tid. Zofran 4 mg q6h PRN. Ativan 2 mg am and afternoon, 1 mg HS. OT/PT. HISTORY OF THE PRESENT ILLNESS: This is a 64-year-old female patient with history of hypertension, hypothyroidism who was brought to the emergency department of [facility] with complaints of sudden new onset symptoms of dizziness that started in the afternoon and again around 10 PM on 05/11/19. This was sudden onset, she states the dizziness comes in waves and associated with nausea. She stated that the room was spinning with sense of self spinning. She denies fever, headache. Movements of her eyes makes the dizziness worse. 05/14/19: still has vertigo. Right side lying position and right side head turning can induce her vertigo symptoms. No signs of cerebellar ataxia. PAST MEDICAL HISTORY: GERD, High Cholesterol, Hypertension, Hypothyroid, Migraines, OBESITY PAST SURGERY HISTORY: Knee Replacement, D&C, JAW SURGERY, RIGHT KNEE REPLACEMENT ALLERGY: NKDA Unknown MEDICATIONS: Refer to [facility] HISTORY: HTN SOCIAL HISTORY: Lives alt home. Denies smoking, drinking, and illicit drug use. REVIEW OF SYSTEMS: Constitutional: Obesity. Head: No traumatic brain or head injury. Skin: No edema, or rash. Ear: No infection. Eyes: No vision loss or color blindness. Nose: No bleeding or purulent discharges. Hearing: No hearing decrease. Neck: No injury. Breast: No history of cancer, masses,or discharges. Cardiac: HTN. Pulmonary: No COPD. GI: GERD. Urinary/genital: UTI. Endocrinologic: Morbid obesity. Skeletomuscular: No muscular atrophy, deformity. Neurological: see HP. Psychiatric: Denies drug use/abuse. Otherwise, not [id number] review of systems. PHYSICAL EXAMINATION: General appearance is in subacute distress. HEENT: Normocephalic and nontraumatic. Eyes, nose, ears, and throat are unremarkable. Neck is supple. No lymphadenopathy. No bruits are heard over the carotid artery. No crepitus. Cardiovascular: S1, S2, regular rate and rhythm. Pulmonary: Clear to auscultation bilaterally. Abdomen: Bowel sounds are positive. Abdomen is soft, nontender, and nondistended. Extremities: No rash, lesions, or edema. No restriction of range of motion NEUROLOGICAL EXAMINATION: Alert Horizontal nystagmus elicited. Oriented to time, place and person. PERRL. EOMI. CN: no focal findings. Muscle tone: within normal. Muscle strength: 5 DTR: 2 Plantar reflex: Flexor response bilaterally Gait: not examined in bed. Sensory exam: no abnormal findings. No cerebellar signs elicited. F-T-N test fine. Objective Objective Vital Signs Date Time Temp Pulse Resp B/P (MAP) Pulse Ox O2 Delivery O2 Flow Rate FiO2 05/14/19 16:24 Room Air 05/14/19 14:52 97.6 103 18 143/87 (105) 94 97.6 05/14/19 11:58 21.0 Intake and Output 05/14/19 07:00 Intake Total 250 ml Output Total 850 ml Balance -600 ml Intake Oral 250 ml Output Urine Total 850 ml # Voids 4 Vitals Signs Vitals VS - Last 72 Hours, by Label Date Time Temp Pulse Resp B/P (MAP) Pulse Ox O2 Delivery O2 Flow Rate FiO2 05/14/19 16:24 Room Air 05/14/19 14:52 97.6 103 18 143/87 (105) 94 Room Air 97.6 05/14/19 14:30 Room Air 05/14/19 11:58 97 21.0 05/14/19 11:13 97.5 106 18 158/90 (112) 95 Room Air 97.5 05/14/19 08:00 Room Air 05/14/19 07:05 97.9 97 18 141/75 (97) 96 Room Air 97.9 05/14/19 03:40 97.7 74 16 120/71 (87) 93 Room Air 97.7 05/13/19 23:38 98.3 69 16 129/59 (82) 92 Room Air 98.3 05/13/19 20:05 Room Air 05/13/19 19:15 98.3 69 16 141/56 (84) 94 Room Air 98.3 05/13/19 15:00 97.4 67 16 115/54 (74) 95 Room Air 97.4 05/13/19 12:15 Room Air 05/13/19 11:02 97.6 57 18 138/76 (96) 96 Room Air 97.6 05/13/19 08:00 Room Air 05/13/19 07:20 97.7 65 17 144/83 (103) 92 Room Air 97.7 Laboratory Laboratory Laboratory Tests Test 05/14/19 05:20 White Blood Count 5.8 x10^3/uL (4.0-11.0) Red Blood Count 4.71 x10^6/uL (3.50-5.40) Hemoglobin 14.2 g/dL (12.0-15.5) Hematocrit 42.2 % (36.0-47.0) Mean Corpuscular Volume 90 fL (79-100) Mean Corpuscular Hemoglobin 30 pg (25-35) Mean Corpuscular Hemoglobin Concent 34 g/dL (31-37) Red Cell Distribution Width 14.0 % (11.5-14.5) Platelet Count 173 x10^3/uL (140-400) Neutrophils (%) (Auto) 61 % (31-73) Lymphocytes (%) (Auto) 29 % (24-48) Monocytes (%) (Auto) 8 % (0-9) Eosinophils (%) (Auto) 2 % (0-3) Basophils (%) (Auto) 1 % (0-3) Neutrophils # (Auto) 3.5 x10^3/uL (1.8-7.7) Lymphocytes # (Auto) 1.6 x10^3/uL (1.0-4.8) Monocytes # (Auto) 0.5 x10^3/uL (0.0-1.1) Eosinophils # (Auto) 0.1 x10^3/uL (0.0-0.7) Basophils # (Auto) 0.0 x10^3/uL (0.0-0.2) Sodium Level 140 mmol/L (136-145) Potassium Level 4.1 mmol/L (3.5-5.1) Chloride Level 107 mmol/L (98-107) Carbon Dioxide Level 29 mmol/L (21-32) Anion Gap 4 (6-14) Blood Urea Nitrogen 8 mg/dL (7-20) Creatinine 0.9 mg/dL (0.6-1.0) Estimated GFR (Cockcroft-Gault) 63.0 Glucose Level 101 mg/dL (70-99) Calcium Level 9.1 mg/dL (8.5-10.1) Medication Medications Current Medications Lorazepam (Ativan) 1 mg TID PO Last administered on 05/14/19at 13:44; Start 05/13/19 at 21:00 Warfarin Sodium (Coumadin Per Pharmacy) 1 each PRN DAILY PRN [facility] SEE COMMENTS; Start 05/14/19 at 07:45; Status Cancel Comment Review of Relevant I have reviewed the following items sabina (where applicable) has been applied. KIZZY SMITH MD May 14, 2019 16:29
[2019-05-14 19:55] VITALS: BP 110/54
[2019-05-14] MEDS: ATORVASTATIN CALCIUM 40 MG TABLET. PO SCH (20:57)
[2019-05-14] MEDS: ONDANSETRON PF 4 MG/2 ML VIAL. IV PRN (21:13)
[2019-05-14 23:52] VITALS: BP 145/70
[2019-05-15] MEDS: HYDROcodone/APAP 5/325MG 1 TAB TABLET PO PRN (03:32)
[2019-05-15 03:52] VITALS: BP 109/66
[2019-05-15] MEDS: IV NORMAL SALINE 1000ML BAG 1,000 ML IV SCH ×3 (04:40→23:02)
[2019-05-15 04:50] LABS: BASO % 1 % (0-3); EOS # 0.1 x10^3/uL (0.0-0.7); EOS % 2 % (0-3); HEMATOCRIT 41.9 % (36.0-47.0); HEMOGLOBIN 13.8 g/dL (12.0-15.5); LYMPH # 2.1 x10^3/uL (1.0-4.8); LYMPH % 38 % (24-48); MEAN CORPUSCULAR HEMOGLOBIN 30 pg (25-35); MEAN CORPUSCULAR HGB CONC 33 g/dL (31-37); MEAN CORPUSCULAR VOLUME 91 fL (79-100); MONO # 0.6 x10^3/uL (0.0-1.1); MONO % 11 % (0-9); NEUT # 2.7 x10^3/uL (1.8-7.7); NEUT % 49 % (31-73); PLATELET COUNT 173 x10^3/uL (140-400); RED BLOOD COUNT 4.62 x10^6/uL (3.50-5.40); RED CELL DISTRIBUTION WIDTH 14.1 % (11.5-14.5); WHITE BLOOD COUNT 5.5 x10^3/uL (4.0-11.0)
[2019-05-15 05:07] LABS: CALCIUM 9.2 mg/dL (8.5-10.1); CREATININE 0.9 mg/dL (0.6-1.0); POTASSIUM 3.9 mmol/L (3.5-5.1)
[2019-05-15] MEDS: LEVOTHYROXINE 150 MCG TABLET PO SCH (06:11)
[2019-05-15 07:10] VITALS: BP 147/76
[2019-05-15] MEDS: MECLIZINE HCL 12.5 MG TABLET. PO SCH ×3 (10:25→20:47)
[2019-05-15] MEDS: ONDANSETRON PF 4 MG/2 ML VIAL. IV PRN (10:25)
[2019-05-15] MEDS: THIAMINE 100 MG TABLET. PO SCH (10:25)
[2019-05-15] MEDS: PANTOPRAZOLE 40 MG TABLET.DR. PO SCH ×2 (10:29→16:58)
[2019-05-15] MEDS: LORazepam 1 MG TABLET PO SCH (10:30)
[2019-05-15] MEDS: ASPIRIN CHEWABLE 81 MG TABLET. PO SCH (10:30)
[2019-05-15] MEDS: CHOLECALCIFEROL (VITAMIN D3) 1,000 UNIT TABLET PO SCH (10:30)
[2019-05-15] MEDS: ENOXAPARIN 40 MG/0.4 ML SYRINGE. SQ SCH ×2 (10:34→20:47)
[2019-05-15 11:09] VITALS: BP 151/72
--- NOTE | 2019-05-15 11:35 | RAD ---
ANGIOGRAPHY BRAIN WO CONTRAST History: Dizziness Technique: 3-D [id number] MR angiography was performed of the brain. 3-D reconstructions were performed. Comparison: CT angiogram head May 12, 2019. Brain MRI May 12, 2019 Findings: Internal carotid arteries: No stenosis, occlusion or aneurysm. Middle cerebral arteries: No stenosis, occlusion or aneurysm. Anterior cerebral arteries: No stenosis, occlusion or aneurysm. Posterior cerebral arteries: No stenosis, occlusion or aneurysm. Predominantly origin of the right posterior cerebral artery. Basilar artery: No stenosis, occlusion or aneurysm. Vertebral arteries: No stenosis, occlusion or aneurysm. Impression: 1. No intracranial arterial stenosis, occlusion or aneurysm. Electronically signed by: Main Morales DO (05/15/2019 11:32 AM) [id number]
--- NOTE | 2019-05-15 11:45 | NUR ---
SS following for discharge planning. Pt is from home with spouse and is currently on room air. PT/OT recommending home with assistance at this time. SS will continue to follow for discharge planning.
--- NOTE | 2019-05-15 12:44 | PDOC ---
PROGRESS NOTES Assessment Problems Medical Problems: (1) Dizziness Status: Acute (2) Nausea & vomiting Status: Acute Dizziness, no evidence of vestibular abnormality now on bedside exam, she has had MRI the brain, CT angiogram, carotid Doppler studies, and MR angiogram, all negative. HTN. Hypothyroidism. GERD. Chronic migraine headache, consider migraine-associated dizziness Obesity. Plan ASA daily. Meclizine 25 mg tid. Zofran 4 mg q6h PRN. Ativan 2 mg am and afternoon, 1 mg HS. OT/PT. We are look which in and of what we can do for her in the hospital, consider discharge home If symptoms persist, consider ENT consult Could also consider trial of escitalopram as treatment for migraine associated dizziness. Subjective Still dizzy Objective Vital Signs Date Time Temp Pulse Resp B/P (MAP) Pulse Ox O2 Delivery O2 Flow Rate FiO2 05/15/19 11:09 98.5 80 19 151/72 (98) 94 Room Air 98.5 05/14/19 11:58 21.0 Intake and Output 05/15/19 07:00 Intake Total 860 ml Balance 860 ml Intake Oral 860 ml # Voids 6 PHYSICAL EXAM Alert. Oriented to time, place and person. PERRL. No nystagmus EOMI. CN: no focal findings. Muscle tone: normal. Muscle strength: 5/5 DTR: 2+ Plantar reflex: flexor Gait: unsteady. Sensory exam: no abnormal findings. No cerebellar signs elicited. Review of Relevant I have reviewed the following items sabina (where applicable) has been applied. Labs Laboratory Tests Test 05/14/19 05:20 05/15/19 04:10 White Blood Count 5.8 x10^3/uL (4.0-11.0) 5.5 x10^3/uL (4.0-11.0) Red Blood Count 4.71 x10^6/uL (3.50-5.40) 4.62 x10^6/uL (3.50-5.40) Hemoglobin 14.2 g/dL (12.0-15.5) 13.8 g/dL (12.0-15.5) Hematocrit 42.2 % (36.0-47.0) 41.9 % (36.0-47.0) Mean Corpuscular Volume 90 fL (79-100) 91 fL (79-100) Mean Corpuscular Hemoglobin 30 pg (25-35) 30 pg (25-35) Mean Corpuscular Hemoglobin Concent 34 g/dL (31-37) 33 g/dL (31-37) Red Cell Distribution Width 14.0 % (11.5-14.5) 14.1 % (11.5-14.5) Platelet Count 173 x10^3/uL (140-400) 173 x10^3/uL (140-400) Neutrophils (%) (Auto) 61 % (31-73) 49 % (31-73) Lymphocytes (%) (Auto) 29 % (24-48) 38 % (24-48) Monocytes (%) (Auto) 8 % (0-9) 11 % (0-9) Eosinophils (%) (Auto) 2 % (0-3) 2 % (0-3) Basophils (%) (Auto) 1 % (0-3) 1 % (0-3) Neutrophils # (Auto) 3.5 x10^3/uL (1.8-7.7) 2.7 x10^3/uL (1.8-7.7) Lymphocytes # (Auto) 1.6 x10^3/uL (1.0-4.8) 2.1 x10^3/uL (1.0-4.8) Monocytes # (Auto) 0.5 x10^3/uL (0.0-1.1) 0.6 x10^3/uL (0.0-1.1) Eosinophils # (Auto) 0.1 x10^3/uL (0.0-0.7) 0.1 x10^3/uL (0.0-0.7) Basophils # (Auto) 0.0 x10^3/uL (0.0-0.2) 0.0 x10^3/uL (0.0-0.2) Sodium Level 140 mmol/L (136-145) 142 mmol/L (136-145) Potassium Level 4.1 mmol/L (3.5-5.1) 3.9 mmol/L (3.5-5.1) Chloride Level 107 mmol/L (98-107) 107 mmol/L (98-107) Carbon Dioxide Level 29 mmol/L (21-32) 28 mmol/L (21-32) Anion Gap 4 (6-14) 7 (6-14) Blood Urea Nitrogen 8 mg/dL (7-20) 7 mg/dL (7-20) Creatinine 0.9 mg/dL (0.6-1.0) 0.9 mg/dL (0.6-1.0) Estimated GFR (Cockcroft-Gault) 63.0 63.0 Glucose Level 101 mg/dL (70-99) 94 mg/dL (70-99) Calcium Level 9.1 mg/dL (8.5-10.1) 9.2 mg/dL (8.5-10.1) Laboratory Tests Test 05/15/19 04:10 White Blood Count 5.5 x10^3/uL (4.0-11.0) Red Blood Count 4.62 x10^6/uL (3.50-5.40) Hemoglobin 13.8 g/dL (12.0-15.5) Hematocrit 41.9 % (36.0-47.0) Mean Corpuscular Volume 91 fL (79-100) Mean Corpuscular Hemoglobin 30 pg (25-35) Mean Corpuscular Hemoglobin Concent 33 g/dL (31-37) Red Cell Distribution Width 14.1 % (11.5-14.5) Platelet Count 173 x10^3/uL (140-400) Neutrophils (%) (Auto) 49 % (31-73) Lymphocytes (%) (Auto) 38 % (24-48) Monocytes (%) (Auto) 11 % (0-9) Eosinophils (%) (Auto) 2 % (0-3) Basophils (%) (Auto) 1 % (0-3) Neutrophils # (Auto) 2.7 x10^3/uL (1.8-7.7) Lymphocytes # (Auto) 2.1 x10^3/uL (1.0-4.8) Monocytes # (Auto) 0.6 x10^3/uL (0.0-1.1) Eosinophils # (Auto) 0.1 x10^3/uL (0.0-0.7) Basophils # (Auto) 0.0 x10^3/uL (0.0-0.2) Sodium Level 142 mmol/L (136-145) Potassium Level 3.9 mmol/L (3.5-5.1) Chloride Level 107 mmol/L (98-107) Carbon Dioxide Level 28 mmol/L (21-32) Anion Gap 7 (6-14) Blood Urea Nitrogen 7 mg/dL (7-20) Creatinine 0.9 mg/dL (0.6-1.0) Estimated GFR (Cockcroft-Gault) 63.0 Glucose Level 94 mg/dL (70-99) Calcium Level 9.2 mg/dL (8.5-10.1) Medications Current Medications Iohexol (Omnipaque 350 Mg/ml) 75 ml 1X ONCE IV Last administered on 05/12/19at 02:00; Start 05/12/19 at 02:30; Stop 05/12/19 at 02:31; Status DC Info (CONTRAST GIVEN -- Rx MONITORING) 1 each PRN DAILY PRN MC SEE COMMENTS; Start 05/12/19 at 02:30; Stop 05/14/19 at 02:29; Status DC Magnesium Sulfate 50 ml @ 25 mls/hr 1X ONCE IV Last administered on 05/12/19at 03:03; Start 05/12/19 at 03:00; Stop 05/12/19 at 04:59; Status DC Meclizine HCl (Antivert) 25 mg 1X ONCE PO Last administered on 05/12/19at 04:23; Start 05/12/19 at 04:00; Stop 05/12/19 at 04:01; Status DC Ondansetron HCl (Zofran) 4 mg 1X ONCE IV Last administered on 05/12/19at 04:23; Start 05/12/19 at 04:30; Stop 05/12/19 at 04:31; Status DC Ondansetron HCl (Zofran) 4 mg PRN Q8HRS PRN IV NAUSEA/VOMITING 1ST CHOICE; Start 05/12/19 at 05:30; Stop 05/12/19 at 14:36; Status DC Acetaminophen (Tylenol) 650 mg PRN Q4HRS PRN PO FEVER; Start 05/12/19 at 05:30; Stop 05/12/19 at 14:35; Status DC Meclizine HCl (Antivert) 25 mg TID PO Last administered on 05/15/19at 10:25; Start 05/12/19 at 14:00 Lorazepam (Ativan) 1 mg PRN Q6HRS PRN PO ANXIETY / AGITATION Last administered on 05/12/19at 13:01; Start 05/12/19 at 11:45; Stop 05/13/19 at 20:52; Status DC Ondansetron HCl (Zofran) 4 mg PRN Q6HRS PRN IVP NAUSEA/VOMITING; Start 05/12/19 at 11:45; Stop 05/12/19 at 14:36; Status DC Thiamine Mononitrate (Vitamin B-1) 100 mg DAILY PO Last administered on 05/15/19at 10:25; Start 05/12/19 at 12:00 Aspirin (Children'S Aspirin) 81 mg [id number] PO Last administered on 05/15/19at 10:30; Start 05/12/19 at 15:00 Sodium Chloride (Normal Saline Flush) 3 ml QSHIFT PRN IV AFTER MEDS AND BLOOD DRAWS; Start 05/12/19 at 14:30 Sodium Chloride 1,000 ml @ 80 mls/hr [id number] IV Last administered on 05/15/19at 04:40; Start 05/12/19 at 14:25 Ondansetron HCl (Zofran) 4 mg PRN Q4HRS PRN IV NAUSEA/VOMITING Last administered on 05/15/19at 10:25; Start 05/12/19 at 14:30 Acetaminophen (Tylenol) 650 mg PRN Q4HRS PRN PO TEMP OVER 100.4F OR MILD PAIN Last administered on 05/13/19at 06:50; Start 05/12/19 at 14:30 Clonidine HCl (Catapres) 0.1 mg PRN Q6HRS PRN PO SBP>160 OR DBP>90; Start 05/12/19 at 14:30 Docusate Sodium (Colace) 100 mg PRN BID PRN PO CONSTIPATION; Start 05/12/19 at 14:30 Albuterol Sulfate (Ventolin Neb Soln) 2.5 mg PRN Q4HRS PRN NEB SHORTNESS OF B REATH Last administered on 05/14/19at 11:56; Start 05/12/19 at 14:30 Guaifenesin (Robitussin) 200 mg PRN Q4HRS PRN PO COUGH; Start 05/12/19 at 14:30 Lorazepam (Ativan) 0.5 mg PRN Q4HRS PRN PO ANXIETY / AGITATION; Start 05/12/19 at 14:30; Stop 05/12/19 at 14:35; Status DC Enoxaparin Sodium (Lovenox 40mg Syringe) 40 mg Q12HR SQ Last administered on 05/15/19 10:34; Start 05/12/19 at 21:00 Vitamin D (Vitamin D3) 2,000 unit DAILY PO Last administered on 05/15/19at 10:30; Start 05/13/19 at 09:00 Acetaminophen/ Hydrocodone Bitart (Lortab 5/325) 1 tab PRN Q4HRS PRN PO MODERATE PAIN, SEVERE PAIN Last administered on 05/15/19 03:32; Start 05/12/19 at 16:00 Levothyroxine Sodium (Synthroid) 150 mcg DAILY07 PO Last administered on 05/15/19 06:11; Start 05/13/19 at 07:00 Warfarin Sodium (Coumadin) 4 mg DAILY PO ; Start 05/13/19 at 09:00; Stop 05/12/19 at 14:33; Status DC Pantoprazole Sodium (Protonix) 40 mg BIDAC PO Last administered on 05/15/19 10:29; Start 05/12/19 at 16:30 Atorvastatin Calcium (Lipitor) 80 mg QHS PO Last administered on 05/14/19at 20:57; Start 05/12/19 at 21:00 Gadoterate Meglumine (Dotarem) 10 ml 1X ONCE IVP Last administered on 05/12/19 16:30; Start 05/12/19 at 16:00; Stop 05/12/19 at 16:01; Status DC Gadoterate Meglumine (Dotarem) 10 ml 1X ONCE IVP Last administered on 05/12/19 16:30; Start 05/12/19 at 16:00; Stop 05/12/19 at 16:01; Status DC Meclizine HCl (Antivert) 25 mg PRN Q8HRS PRN PO VERTIGO Last administered on 05/13/19 12:15; Start 05/13/19 at 12:00 Lorazepam (Ativan) 1 mg TID PO Last administered on 05/14/19 13:44; Start 05/13/19 at 21:00; Stop 05/14/19 at 16:37; Status DC Warfarin Sodium (Coumadin Per Pharmacy) 1 each PRN DAILY PRN MC SEE COMMENTS; Start 05/14/19 at 07:45; Status Cancel Lorazepam (Ativan) 2 mg DAILY08 PO Last administered on 05/15/19at 10:30; Start 05/15/19 at 08:00 Lorazepam (Ativan) 2 mg DAILY16 PO ; Start 05/15/19 at 16:00 Active Scripts Active Reported Sumatriptan Succinate 100 Mg Tablet 100 Mg PO ONCE PRN Vitamin D3 (Cholecalciferol (Vitamin D3)) 1,000 Unit Tablet 2,000 Unit PO DAILY Crestor (Rosuvastatin Calcium) 20 Mg Tablet 20 Mg PO HS Protonix (Pantoprazole Sodium) 20 Mg Tablet.dr 40 Mg PO BID Levothyroxine Sodium 150 Mcg Tablet 1 Tab PO DAILY Vitals/I & O Vital Sign - Last 24 Hours 05/14/19 05/14/19 05/14/19 05/14/19 14:30 14:52 16:24 19:55 Temp 97.6 97.9 97.6 97.9 Pulse 103 90 Resp 18 16 B/P (MAP) 143/87 (105) 110/54 (72) Pulse Ox 94 93 O2 Delivery Room Air Room Air Room Air Room Air 05/14/19 05/14/19 05/15/19 05/15/19 20:05 23:52 03:52 07:10 Temp 97.9 97.7 98.3 97.9 97.7 98.3 Pulse 87 70 58 Resp 16 16 17 B/P (MAP) 145/70 (95) 109/66 (80) 147/76 (99) Pulse Ox 96 94 95 O2 Delivery Room Air Room Air Room Air Room Air 05/15/19 05/15/19 08:00 11:09 Temp 98.5 98.5 Pulse 80 Resp 19 B/P (MAP) 151/72 (98) Pulse Ox 94 O2 Delivery Room Air Room Air Intake and Output 05/14/19 05/14/19 05/15/19 15:00 23:00 07:00 Intake Total 420 ml 200 ml 240 ml Balance 420 ml 200 ml 240 ml Images ANGIOGRAPHY BRAIN WO CONTRAST History: Dizziness Technique: 3-D [id number] MR angiography was performed of the brain. 3-D reconstructions were performed. Comparison: CT angiogram head May 12, 2019. Brain MRI May 12, 2019 Findings: Internal carotid arteries: No stenosis, occlusion or aneurysm. Middle cerebral arteries: No stenosis, occlusion or aneurysm. Anterior cerebral arteries: No stenosis, occlusion or aneurysm. Posterior cerebral arteries: No stenosis, occlusion or aneurysm. Predominantly origin of the right posterior cerebral artery. Basilar artery: No stenosis, occlusion or aneurysm. Vertebral arteries: No stenosis, occlusion or aneurysm. Impression: 1. No intracranial arterial stenosis, occlusion or aneurysm. MRI of the Brain without and with Contrast 05/12/2019 Clinical History: Acute dizziness with unsteadiness. Technique: Unenhanced T1-weighted sagittal and axial and FLAIR, T2-weighted, gradient echo and diffusion-weighted axial images of the brain were obtained. After the intravenous administration of 20 cc of Gadavist, enhanced T1-weighted axial, sagittal and coronal images of the brain were obtained. Findings: Comparison is made to the patient's CTA of the head performed earlier today. Images from the study are degraded by patient motion. There is generalized parenchymal atrophy. Patchy and small scattered areas of abnormally increased signal intensity are seen within the periventricular and subcortical white matter of both cerebral hemispheres on the FLAIR and T2-weighted images consistent with areas of mild small vessel ischemic disease. No acute parenchymal abnormality is seen. No abnormal area of contrast enhancement is noted. No extra-axial fluid collection is seen. There is no MRI evidence of acute ischemia/infarction. Mild mucosal thickening is seen scattered throughout the paranasal sinuses. There are minimal bilateral mastoid effusions. Normal flow voids are seen within the major vascular structures surrounding the brain parenchyma. Impression: No acute parenchymal abnormality is seen. CT angiography of the head and neck INDICATION: Dizziness. COMPARISON: None. TECHNIQUE: Axial CT imaging of the head and neck utilizing angiography protocol and performed after the intravenous administration of 75 cc Omnipaque 350 contrast. Multiplanar reformats and 3D MIP acquisitions were obtained. Encountered areas of stenosis are measured per NASCET criteria. One or more of the following individualized dose reduction techniques were utilized for this examination: 1. Automated exposure control 2. Adjustment of the mA and/or kV according to patient size 3. Use of iterative reconstruction technique. FINDINGS: CTA NECK: The great vessel origins are not included in the [id number]. Patent bilateral common carotid arteries. Mild calcific atherosclerosis at the left bifurcation without flow-limiting stenosis. No flow-limiting stenosis of the right bifurcation. Patent vertebral artery origins. Mild dominance of the left vertebral artery. No dissection or stenosis involving either extracranial vertebral artery. CTA HEAD: The intracranial portion of the study is degraded due to bolus timing and there is poor opacification of the peripheral vasculature. Patent intracranial internal carotid arteries. No flow-limiting stenosis or branch vessel occlusion seen to involve either anterior or middle cerebral arteries throughout the proximal portions. The branches are not well evaluated distally. Dominant left intracranial vertebral artery. Left more so than right calcific atherosclerosis. There appears to be moderate stenosis of the dominant left vertebral artery distal to the region of calcific atherosclerosis such as seen on image 60 series 4. Intermittent luminal irregularity of the nondominant intracranial vertebral artery. Both vertebral arteries contribute to basilar flow. The basilar artery is patent. The right P1 posterior cerebral artery segment is very small in caliber however there appears to be a patent posterior communicating artery with larger caliber of the P2 segment. The posterior tibial arteries are not well evaluated past P2. MISCELLANEOUS: Multifactorial degenerative changes scattered throughout the cervical spine. Bony neural foraminal encroachment is most pronounced on the left at C3-C4 and on the right at C4-C5. Intracranial contents are not well evaluated by technique. IMPRESSION: 1. The intracranial portion of the study is degraded due to bolus timing and there is poor opacification of the distal anterior and posterior cerebral circulations. 2. No flow-limiting stenosis or dissection seen to involve the extracranial carotid or vertebral arteries. 3. 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 Intermittent luminal irregularity of the nondominant right intracranial vertebral artery favored related to atherosclerotic disease. Both vertebral arteries contribute to basilar flow. 4. The right P1 posterior cerebral artery segment is very small in size but this appears related to persistent physiology. The P2 segments remain patent however beyond P2 is not well evaluated. No branch vessel occlusion involving the adequately assessed anterior circulation. If there is concern for an acute ischemic event, MRI is recommended. 5. Multilevel cervical degenerative changes with varying degrees of neural foraminal encroachment appearing severe at a few levels, as above. MAYE SALINAS MD May 15, 2019 12:44
--- NOTE | 2019-05-15 13:32 | PDOC ---
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 A GERD High Cholesterol Hypertension Hypothyroid Migraines Obesity Osteoarthritis History of Present Illness History of Present Illness 05/15/19 Pt seen and examined Pt was up in bed but still complains of vertigo, with some improvement DW pt Reviewed pt's chart 05/14/19 Pt seen and examined Pt lying in bed still complaining of vertigo DW pt Reviewed pt's chart 05/13/19 Pt seen and examined Pt was lying in bed with a towel wrapped around her Pt still c/o vertigo DW pt DW RN Reviewed pt's chart Vitals/I&O Vitals/I&O: Vital Signs Date Time Temp Pulse Resp B/P (MAP) Pulse Ox O2 Delivery O2 Flow Rate FiO2 05/15/19 11:09 98.5 80 19 151/72 (98) 94 Room Air 98.5 05/14/19 11:58 21.0 I & O 05/14/19 05/14/19 05/15/19 15:00 23:00 07:00 Intake Total 420 ml 200 ml 240 ml Balance 420 ml 200 ml 240 ml Physical Exam General: Alert, Oriented X3, Cooperative, No acute distress Heart: Regular rate, Normal S1, Normal S2 Lungs: Clear Abdomen: Soft, No tenderness, No hepatosplenomegaly Extremities: No clubbing, No cyanosis Skin: No rashes, No breakdown Labs Labs: Laboratory Tests Test 05/15/19 04:10 White Blood Count 5.5 x10^3/uL (4.0-11.0) Red Blood Count 4.62 x10^6/uL (3.50-5.40) Hemoglobin 13.8 g/dL (12.0-15.5) Hematocrit 41.9 % (36.0-47.0) Mean Corpuscular Volume 91 fL (79-100) Mean Corpuscular Hemoglobin 30 pg (25-35) Mean Corpuscular Hemoglobin Concent 33 g/dL (31-37) Red Cell Distribution Width 14.1 % (11.5-14.5) Platelet Count 173 x10^3/uL (140-400) Neutrophils (%) (Auto) 49 % (31-73) Lymphocytes (%) (Auto) 38 % (24-48) Monocytes (%) (Auto) 11 % (0-9) Eosinophils (%) (Auto) 2 % (0-3) Basophils (%) (Auto) 1 % (0-3) Neutrophils # (Auto) 2.7 x10^3/uL (1.8-7.7) Lymphocytes # (Auto) 2.1 x10^3/uL (1.0-4.8) Monocytes # (Auto) 0.6 x10^3/uL (0.0-1.1) Eosinophils # (Auto) 0.1 x10^3/uL (0.0-0.7) Basophils # (Auto) 0.0 x10^3/uL (0.0-0.2) Sodium Level 142 mmol/L (136-145) Potassium Level 3.9 mmol/L (3.5-5.1) Chloride Level 107 mmol/L (98-107) Carbon Dioxide Level 28 mmol/L (21-32) Anion Gap 7 (6-14) Blood Urea Nitrogen 7 mg/dL (7-20) Creatinine 0.9 mg/dL (0.6-1.0) Estimated GFR (Cockcroft-Gault) 63.0 Glucose Level 94 mg/dL (70-99) Calcium Level 9.2 mg/dL (8.5-10.1) Review of Systems Review of Systems: Review of Systems: Pt c/o dizziness No c/o CP Assessment and Plan Assessmemt and Plan Problems Medical Problems: (1) Dizziness Status: Acute (2) Nausea & vomiting Status: Acute Assessment Vertigo 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 Continue Antivert 2. Continue to work with PT/OT 3. Continue home meds 4. DVT prophylaxis 5. D/C when vertigo vertigo resolves Comment Review of Relevant I have reviewed the following items sabina (where applicable) has been applied. Medications: Current Medications Medications (Trade) Dose Ordered Sig/Rikki Route PRN Reason Start Time Stop Time Status Last Admin Dose Admin Lorazepam (Ativan) 2 mg DAILY08 PO 05/15/19 08:00 05/15/19 10:30 VINAY EATON III DO May 15, 2019 13:32
[2019-05-15 15:00] VITALS: BP 138/78
[2019-05-15] MEDS ORDERED: LORazepam 1 MG TABLET PO SCH (16:00)
[2019-05-15 19:53] VITALS: BP 125/67
[2019-05-15] MEDS: ATORVASTATIN CALCIUM 40 MG TABLET. PO SCH (20:47)
[2019-05-15 23:22] VITALS: BP 127/63
[2019-05-16 03:32] VITALS: BP 118/73
[2019-05-16 06:04] LABS: BASO % 1 % (0-3); EOS # 0.1 x10^3/uL (0.0-0.7); EOS % 3 % (0-3); HEMATOCRIT 43.8 % (36.0-47.0); HEMOGLOBIN 14.2 g/dL (12.0-15.5); LYMPH # 1.9 x10^3/uL (1.0-4.8); LYMPH % 36 % (24-48); MEAN CORPUSCULAR HEMOGLOBIN 29 pg (25-35); MEAN CORPUSCULAR HGB CONC 33 g/dL (31-37); MEAN CORPUSCULAR VOLUME 90 fL (79-100); MONO # 0.5 x10^3/uL (0.0-1.1); MONO % 10 % (0-9); NEUT # 2.7 x10^3/uL (1.8-7.7); NEUT % 50 % (31-73); PLATELET COUNT 180 x10^3/uL (140-400); RED BLOOD COUNT 4.84 x10^6/uL (3.50-5.40); WHITE BLOOD COUNT 5.4 x10^3/uL (4.0-11.0)
[2019-05-16] MEDS: LEVOTHYROXINE 150 MCG TABLET PO SCH (06:13)
[2019-05-16 06:29] LABS: CALCIUM 9.4 mg/dL (8.5-10.1); CREATININE 0.9 mg/dL (0.6-1.0); POTASSIUM 3.8 mmol/L (3.5-5.1)
[2019-05-16 07:00] VITALS: BP 131/79
[2019-05-16] MEDS: THIAMINE 100 MG TABLET. PO SCH (09:06)
[2019-05-16] MEDS: LORazepam 1 MG TABLET PO SCH (09:06)
[2019-05-16] MEDS: ASPIRIN CHEWABLE 81 MG TABLET. PO SCH (09:06)
[2019-05-16] MEDS: CHOLECALCIFEROL (VITAMIN D3) 1,000 UNIT TABLET PO SCH (09:06)
[2019-05-16] MEDS: PANTOPRAZOLE 40 MG TABLET.DR. PO SCH (09:07)
[2019-05-16] MEDS: MECLIZINE HCL 12.5 MG TABLET. PO SCH (09:08)
[2019-05-16] MEDS: ENOXAPARIN 40 MG/0.4 ML SYRINGE. SQ SCH (09:09)
--- NOTE | 2019-05-16 10:11 | PDOC ---
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 A GERD High Cholesterol Hypertension Hypothyroid Migraines Obesity Osteoarthritis History of Present Illness History of Present Illness 05/16/19 Pt seen and examined Pt was sitting up in bed, feeling better today She is waiting for a walker to arrive to help with her ambulation post discharge DW pt DW RN Reviewed pt's chart 05/15/19 Pt seen and examined Pt was up in bed but still complains of vertigo, with some improvement DW pt Reviewed pt's chart 05/14/19 Pt seen and examined Pt lying in bed still complaining of vertigo DW pt Reviewed pt's chart 05/13/19 Pt seen and examined Pt was lying in bed with a towel wrapped around her Pt still c/o vertigo DW pt DW RN Reviewed pt's chart Vitals/I&O Vitals/I&O: Vital Signs Date Time Temp Pulse Resp B/P (MAP) Pulse Ox O2 Delivery O2 Flow Rate FiO2 05/16/19 07:00 98.4 85 12 131/79 (96) 92 Room Air 98.4 I & O 05/15/19 05/15/19 05/16/19 14:59 22:59 06:59 Intake Total 350 ml 150 ml Balance 350 ml 150 ml Physical Exam General: Alert, Oriented X3, Cooperative, No acute distress Heart: Regular rate, Normal S1, Normal S2 Lungs: Clear Abdomen: Soft, No tenderness, No hepatosplenomegaly Extremities: No clubbing, No cyanosis Skin: No rashes, No breakdown Labs Labs: Laboratory Tests Test 05/16/19 05:25 White Blood Count 5.4 x10^3/uL (4.0-11.0) Red Blood Count 4.84 x10^6/uL (3.50-5.40) Hemoglobin 14.2 g/dL (12.0-15.5) Hematocrit 43.8 % (36.0-47.0) Mean Corpuscular Volume 90 fL (79-100) Mean Corpuscular Hemoglobin 29 pg (25-35) Mean Corpuscular Hemoglobin Concent 33 g/dL (31-37) Red Cell Distribution Width 14.0 % (11.5-14.5) Platelet Count 180 x10^3/uL (140-400) Neutrophils (%) (Auto) 50 % (31-73) Lymphocytes (%) (Auto) 36 % (24-48) Monocytes (%) (Auto) 10 % (0-9) Eosinophils (%) (Auto) 3 % (0-3) Basophils (%) (Auto) 1 % (0-3) Neutrophils # (Auto) 2.7 x10^3/uL (1.8-7.7) Lymphocytes # (Auto) 1.9 x10^3/uL (1.0-4.8) Monocytes # (Auto) 0.5 x10^3/uL (0.0-1.1) Eosinophils # (Auto) 0.1 x10^3/uL (0.0-0.7) Basophils # (Auto) 0.0 x10^3/uL (0.0-0.2) Sodium Level 141 mmol/L (136-145) Potassium Level 3.8 mmol/L (3.5-5.1) Chloride Level 106 mmol/L (98-107) Carbon Dioxide Level 29 mmol/L (21-32) Anion Gap 6 (6-14) Blood Urea Nitrogen 14 mg/dL (7-20) Creatinine 0.9 mg/dL (0.6-1.0) Estimated GFR (Cockcroft-Gault) 63.0 Glucose Level 96 mg/dL (70-99) Calcium Level 9.4 mg/dL (8.5-10.1) Review of Systems Review of Systems: c/o n/v c/o dizziness Assessment and Plan Assessmemt and Plan Problems Medical Problems: (1) Dizziness Status: Acute (2) Nausea & vomiting Status: Acute Assessment Vertigo 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 Medications: Current Medications Medications (Trade) Dose Ordered Sig/Rikki Route PRN Reason Start Time Stop Time Status Last Admin Dose Admin Lorazepam (Ativan) 2 mg DAILY16 PO 05/15/19 16:00 05/15/19 16:58 VINAY EATON III DO May 16, 2019 10:11
--- NOTE | 2019-05-16 10:53 | PDOC ---
PROGRESS NOTES Assessment Problems Medical Problems: (1) Dizziness Status: Acute (2) Nausea & vomiting Status: Acute Dizziness, no evidence of vestibular abnormality now on bedside exam, she has had MRI of the brain, CT angiogram, carotid Doppler studies, and MR angiogram, all negative. HTN. Hypothyroidism. GERD. Chronic migraine headache, consider migraine-associated dizziness Obesity. Plan ASA daily. Meclizine 25 mg tid., taper after one week to avoid interfering with the brain's habituation to the abnormal vestibular input Zofran 4 mg q6h PRN. Ativan 2 mg am and afternoon, 1 mg HS. discontinue after one week Discussed with physical therapist, Rich, he is providing some vestibular exercises Discharge home today If symptoms persist, consider ENT or vestibular audiology consult Could also consider trial of escitalopram as treatment for migraine associated dizziness. Subjective Feels better, willing to go home Objective Vital Signs Date Time Temp Pulse Resp B/P (MAP) Pulse Ox O2 Delivery O2 Flow Rate FiO2 05/16/19 08:20 Room Air 05/16/19 07:00 98.4 85 12 131/79 (96) 92 98.4 Intake and Output 05/16/19 07:00 Intake Total 500 ml Balance 500 ml Intake Oral 500 ml # Voids 6 PHYSICAL EXAM Alert. Oriented to time, place and person. PERRL. No nystagmus EOMI. CN: no focal findings. Muscle tone: normal. Muscle strength: 5/5 DTR: 2+ Plantar reflex: flexor Gait: unsteady, does well with walker. Sensory exam: no abnormal findings. No cerebellar signs elicited. Review of Relevant I have reviewed the following items sabina (where applicable) has been applied. Labs Laboratory Tests Test 05/15/19 04:10 05/16/19 05:25 White Blood Count 5.5 x10^3/uL (4.0-11.0) 5.4 x10^3/uL (4.0-11.0) Red Blood Count 4.62 x10^6/uL (3.50-5.40) 4.84 x10^6/uL (3.50-5.40) Hemoglobin 13.8 g/dL (12.0-15.5) 14.2 g/dL (12.0-15.5) Hematocrit 41.9 % (36.0-47.0) 43.8 % (36.0-47.0) Mean Corpuscular Volume 91 fL (79-100) 90 fL (79-100) Mean Corpuscular Hemoglobin 30 pg (25-35) 29 pg (25-35) Mean Corpuscular Hemoglobin Concent 33 g/dL (31-37) 33 g/dL (31-37) Red Cell Distribution Width 14.1 % (11.5-14.5) 14.0 % (11.5-14.5) Platelet Count 173 x10^3/uL (140-400) 180 x10^3/uL (140-400) Neutrophils (%) (Auto) 49 % (31-73) 50 % (31-73) Lymphocytes (%) (Auto) 38 % (24-48) 36 % (24-48) Monocytes (%) (Auto) 11 % (0-9) 10 % (0-9) Eosinophils (%) (Auto) 2 % (0-3) 3 % (0-3) Basophils (%) (Auto) 1 % (0-3) 1 % (0-3) Neutrophils # (Auto) 2.7 x10^3/uL (1.8-7.7) 2.7 x10^3/uL (1.8-7.7) Lymphocytes # (Auto) 2.1 x10^3/uL (1.0-4.8) 1.9 x10^3/uL (1.0-4.8) Monocytes # (Auto) 0.6 x10^3/uL (0.0-1.1) 0.5 x10^3/uL (0.0-1.1) Eosinophils # (Auto) 0.1 x10^3/uL (0.0-0.7) 0.1 x10^3/uL (0.0-0.7) Basophils # (Auto) 0.0 x10^3/uL (0.0-0.2) 0.0 x10^3/uL (0.0-0.2) Sodium Level 142 mmol/L (136-145) 141 mmol/L (136-145) Potassium Level 3.9 mmol/L (3.5-5.1) 3.8 mmol/L (3.5-5.1) Chloride Level 107 mmol/L (98-107) 106 mmol/L (98-107) Carbon Dioxide Level 28 mmol/L (21-32) 29 mmol/L (21-32) Anion Gap 7 (6-14) 6 (6-14) Blood Urea Nitrogen 7 mg/dL (7-20) 14 mg/dL (7-20) Creatinine 0.9 mg/dL (0.6-1.0) 0.9 mg/dL (0.6-1.0) Estimated GFR (Cockcroft-Gault) 63.0 63.0 Glucose Level 94 mg/dL (70-99) 96 mg/dL (70-99) Calcium Level 9.2 mg/dL (8.5-10.1) 9.4 mg/dL (8.5-10.1) Laboratory Tests Test 05/16/19 05:25 White Blood Count 5.4 x10^3/uL (4.0-11.0) Red Blood Count 4.84 x10^6/uL (3.50-5.40) Hemoglobin 14.2 g/dL (12.0-15.5) Hematocrit 43.8 % (36.0-47.0) Mean Corpuscular Volume 90 fL (79-100) Mean Corpuscular Hemoglobin 29 pg (25-35) Mean Corpuscular Hemoglobin Concent 33 g/dL (31-37) Red Cell Distribution Width 14.0 % (11.5-14.5) Platelet Count 180 x10^3/uL (140-400) Neutrophils (%) (Auto) 50 % (31-73) Lymphocytes (%) (Auto) 36 % (24-48) Monocytes (%) (Auto) 10 % (0-9) Eosinophils (%) (Auto) 3 % (0-3) Basophils (%) (Auto) 1 % (0-3) Neutrophils # (Auto) 2.7 x10^3/uL (1.8-7.7) Lymphocytes # (Auto) 1.9 x10^3/uL (1.0-4.8) Monocytes # (Auto) 0.5 x10^3/uL (0.0-1.1) Eosinophils # (Auto) 0.1 x10^3/uL (0.0-0.7) Basophils # (Auto) 0.0 x10^3/uL (0.0-0.2) Sodium Level 141 mmol/L (136-145) Potassium Level 3.8 mmol/L (3.5-5.1) Chloride Level 106 mmol/L (98-107) Carbon Dioxide Level 29 mmol/L (21-32) Anion Gap 6 (6-14) Blood Urea Nitrogen 14 mg/dL (7-20) Creatinine 0.9 mg/dL (0.6-1.0) Estimated GFR (Cockcroft-Gault) 63.0 Glucose Level 96 mg/dL (70-99) Calcium Level 9.4 mg/dL (8.5-10.1) Medications Current Medications Iohexol (Omnipaque 350 Mg/ml) 75 ml 1X ONCE IV Last administered on 05/12/19at 02:00; Start 05/12/19 at 02:30; Stop 05/12/19 at 02:31; Status DC Info (CONTRAST GIVEN -- Rx MONITORING) 1 each PRN DAILY PRN MC SEE COMMENTS; Start 05/12/19 at 02:30; Stop 05/14/19 at 02:29; Status DC Magnesium Sulfate 50 ml @ 25 mls/hr 1X ONCE IV Last administered on 05/12/19at 03:03; Start 05/12/19 at 03:00; Stop 05/12/19 at 04:59; Status DC Meclizine HCl (Antivert) 25 mg 1X ONCE PO Last administered on 05/12/19at 04:23; Start 05/12/19 at 04:00; Stop 05/12/19 at 04:01; Status DC Ondansetron HCl (Zofran) 4 mg 1X ONCE IV Last administered on 05/12/19at 04:23; Start 05/12/19 at 04:30; Stop 05/12/19 at 04:31; Status DC Ondansetron HCl (Zofran) 4 mg PRN Q8HRS PRN IV NAUSEA/VOMITING 1ST CHOICE; Start 05/12/19 at 05:30; Stop 05/12/19 at 14:36; Status DC Acetaminophen (Tylenol) 650 mg PRN Q4HRS PRN PO FEVER; Start 05/12/19 at 05:30; Stop 05/12/19 at 14:35; Status DC Meclizine HCl (Antivert) 25 mg TID PO Last administered on 05/16/19 09:08; Start 05/12/19 at 14:00 Lorazepam (Ativan) 1 mg PRN Q6HRS PRN PO ANXIETY / AGITATION Last administered on 05/12/19at 13:01; Start 05/12/19 at 11:45; Stop 05/13/19 at 20:52; Status DC Ondansetron HCl (Zofran) 4 mg PRN Q6HRS PRN IVP NAUSEA/VOMITING; Start 05/12/19 at 11:45; Stop 05/12/19 at 14:36; Status DC Thiamine Mononitrate (Vitamin B-1) 100 mg DAILY PO Last administered on 05/16/19 09:06; Start 05/12/19 at 12:00 Aspirin (Children'S Aspirin) 81 mg [id number] PO Last administered on 05/16/19at 09:06; Start 05/12/19 at 15:00 Sodium Chloride (Normal Saline Flush) 3 ml QSHIFT PRN IV AFTER MEDS AND BLOOD DRAWS; Start 05/12/19 at 14:30 Sodium Chloride 1,000 ml @ 80 mls/hr [id number] IV Last administered on 05/15/19at 04:40; Start 05/12/19 at 14:25 Ondansetron HCl (Zofran) 4 mg PRN Q4HRS PRN IV NAUSEA/VOMITING Last administered on 05/15/19at 10:25; Start 05/12/19 at 14:30 Acetaminophen (Tylenol) 650 mg PRN Q4HRS PRN PO TEMP OVER 100.4F OR MILD PAIN Last administered on 05/13/19at 06:50; Start 05/12/19 at 14:30 Clonidine HCl (Catapres) 0.1 mg PRN Q6HRS PRN PO SBP>160 OR DBP>90; Start 05/12/19 at 14:30 Docusate Sodium (Colace) 100 mg PRN BID PRN PO CONSTIPATION; Start 05/12/19 at 14:30 Albuterol Sulfate (Ventolin Neb Soln) 2.5 mg PRN Q4HRS PRN NEB SHORTNESS OF BREATH Last administered on 05/14/19at 11:56; Start 05/12/19 at 14:30 Guaifenesin (Robitussin) 200 mg PRN Q4HRS PRN PO COUGH; Start 05/12/19 at 14:30 Lorazepam (Ativan) 0.5 mg PRN Q4HRS PRN PO ANXIETY / AGITATION; Start 05/12/19 at 14:30; Stop 05/12/19 at 14:35; Status DC Enoxaparin Sodium (Lovenox 40mg Syringe) 40 mg Q12HR SQ Last administered on 05/16/19at 09:09; Start 05/12/19 at 21:00 Vitamin D (Vitamin D3) 2,000 unit DAILY PO Last administered on 05/16/19 09:06; Start 05/13/19 at 09:00 Acetaminophen/ Hydrocodone Bitart (Lortab 5/325) 1 tab PRN Q4HRS PRN PO MODERATE PAIN, SEVERE PAIN Last administered on 05/15/19at 03:32; Start 05/12/19 at 16:00 Levothyroxine Sodium (Synthroid) 150 mcg DAILY07 PO Last administered on 05/16/19at 06:13; Start 05/13/19 at 07:00 Warfarin Sodium (Coumadin) 4 mg DAILY PO ; Start 05/13/19 at 09:00; Stop 05/12/19 at 14:33; Status DC Pantoprazole Sodium (Protonix) 40 mg BIDAC PO Last administered on 05/16/19at 09: 07; Start 05/12/19 at 16:30 Atorvastatin Calcium (Lipitor) 80 mg QHS PO Last administered on 05/15/19at 20:47; Start 05/12/19 at 21:00 Gadoterate Meglumine (Dotarem) 10 ml 1X ONCE IVP Last administered on 05/12/19at 16:30; Start 05/12/19 at 16:00; Stop 05/12/19 at 16:01; Status DC Gadoterate Meglumine (Dotarem) 10 ml 1X ONCE IVP Last administered on 05/12/19at 16:30; Start 05/12/19 at 16:00; Stop 05/12/19 at 16:01; Status DC Meclizine HCl (Antivert) 25 mg PRN Q8HRS PRN PO VERTIGO Last administered on 05/13/19at 12:15; Start 05/13/19 at 12:00 Lorazepam (Ativan) 1 mg TID PO Last administered on 05/14/19at 13:44; Start 05/13/19 at 21:00; Stop 05/14/19 at 16:37; Status DC Warfarin Sodium (Coumadin Per Pharmacy) 1 each PRN DAILY PRN MC SEE COMMENTS; Start 05/14/19 at 07:45; Status Cancel Lorazepam (Ativan) 2 mg DAILY08 PO Last administered on 05/16/19at 09:06; Start 05/15/19 at 08:00 Lorazepam (Ativan) 2 mg DAILY16 PO Last administered on 05/15/19at 16:58; Start 05/15/19 at 16:00 Active Scripts Active Reported Sumatriptan Succinate 100 Mg Tablet 100 Mg PO ONCE PRN Vitamin D3 (Cholecalciferol (Vitamin D3)) 1,000 Unit Tablet 2,000 Unit PO DAILY Crestor (Rosuvastatin Calcium) 20 Mg Tablet 20 Mg PO HS Protonix (Pantoprazole Sodium) 20 Mg Tablet.dr 40 Mg PO BID Levothyroxine Sodium 150 Mcg Tablet 1 Tab PO DAILY Vitals/I & O Vital Sign - Last 24 Hours 05/15/19 05/15/19 05/15/19 05/15/19 11:09 15:00 19:53 20:05 Temp 98.5 97.6 97.4 98.5 97.6 97.4 Pulse 80 75 90 Resp 19 16 18 B/P (MAP) 151/72 (98) 138/78 (98) 125/67 (86) Pulse Ox 94 95 96 O2 Delivery Room Air Room Air Room Air Room Air 05/15/19 05/16/19 05/16/19 05/16/19 23:22 03:32 07:00 08:20 Temp 97.4 98.3 98.4 97.4 98.3 98.4 Pulse 84 77 85 Resp 16 16 12 B/P (MAP) 127/63 (84) 118/73 (88) 131/79 (96) Pulse Ox 92 91 92 O2 Delivery Room Air Room Air Room Air Intake and Output 05/15/19 05/15/19 05/16/19 15:00 23:00 07:00 Intake Total 350 ml 150 ml Balance 350 ml 150 ml MAYE SALINAS MD May 16, 2019 10:53
[2019-05-16 11:00] VITALS: BP 123/72
--- NOTE | 2019-05-16 13:32 | NUR ---
SS following up with discharge planning. Script for walker received. SS phoned and faxed script and clinical to [facility], ; fax [phone].
--- NOTE | 2019-05-16 14:10 | NUR ---
Discharge instructions given to patient regarding medications and following up with her primary care physician. Education given over vertigo and dizziness. Patient verbalizes understanding.
== END 2019-05-16 14:26 | disposition home or self-care (01) | DRG 68 ==
LOC: ER 00:24 → 5 SOUTH 05:00 → OBSVTOIN 06:00 → 6 SOUTH 16:20
PROVIDERS: ADMIT Internal Medicine; ATTEND Internal Medicine
DX: I65.09 Occlusion and stenosis of unspecified vertebral artery (principal); E03.9 Hypothyroidism, unspecified; E66.01 Morbid (severe) obesity due to excess calories; E78.00 Pure hypercholesterolemia, unspecified; E83.42 Hypomagnesemia; G43.909 Migraine, unspecified, not intractable, without status migrainosus; I10 Essential (primary) hypertension; Z96.651 Presence of right artificial knee joint; K21.9 Gastro-esophageal reflux disease without esophagitis; M19.90 Unspecified osteoarthritis, unspecified site; Z79.82 Long term (current) use of aspirin; Z82.49 Family history of ischemic heart disease and other diseases of the circulatory system
CPT/HCPCS: 36415; 70496; 70498; 70544; 70553; 80048; 80053; 80307; 81001; 83735; 85025; 85610; 93005; 93880; 94640; 94760; A9575; G0379; J1650; J2405; J3475; J7030; J7613; J8597; Q9967; 97110; 97530; G0378

== ENCOUNTER → 2019-08-01 | Outpatient (CLI) | payer OTHER ==
--- NOTE | 2019-08-01 12:47 | RAD ---
BILATERAL SCREENING MAMMOGRAM, 3-D History: Routine screening. Comparison: 03/12/2018, 04/08/2017, 03/30/2016, 03/29/2015, 03/27/2014. Technique: MLO and CC digital tomosynthesis (3D) images obtained. Radiologist reviewed these images on dedicated workstation. Findings: Breast Tissue Density B : There are scattered areas of fibroglandular density. There are no dominant masses, suspicious microcalcifications, or architectural distortion. IMPRESSION: No mammographic evidence of malignancy. Recommend routine screening. BI-RADS category 1: Negative. The images were reviewed with computer-aided detection. Patient information is entered into reminder system with a target due date for the next screening mammogram. Mammography is the most sensitive method for finding small breast cancers, but it does not detect them all and is not a substitute for careful clinical examination. A negative mammogram does not negate a clinically suspicious finding and should not result in delay in biopsying a clinically suspicious abnormality. "Our facility is accredited by the [employer] Mammography Program." Electronically signed by: Hank Ovalles MD (08/01/2019 12:44 PM) [facility]
== END | disposition home or self-care (01) ==
LOC: MAMMO 09:04
PROVIDERS: ATTEND Family Medicine
DX: Z12.31 Encounter for screening mammogram for malignant neoplasm of breast (principal)
CPT/HCPCS: 77063; 77067

== ENCOUNTER → 2019-08-17 | Outpatient (CLI) | payer OTHER ==
[2019-08-17 10:00] LABS: BASO # 0.1 x10^3/uL (0.0-0.2); BASO % 1 % (0-3); EOS # 0.1 x10^3/uL (0.0-0.7); EOS % 1 % (0-3); HEMATOCRIT 43.8 % (36.0-47.0); HEMOGLOBIN 14.7 g/dL (12.0-15.5); LYMPH % 37 % (24-48); MEAN CORPUSCULAR HEMOGLOBIN 30 pg (25-35); MEAN CORPUSCULAR HGB CONC 34 g/dL (31-37); MEAN CORPUSCULAR VOLUME 90 fL (79-100); MONO # 0.6 x10^3/uL (0.0-1.1); MONO % 11 % (0-9); NEUT # 2.7 x10^3/uL (1.8-7.7); NEUT % 50 % (31-73); PLATELET COUNT 179 x10^3/uL (140-400); RED BLOOD COUNT 4.86 x10^6/uL (3.50-5.40); RED CELL DISTRIBUTION WIDTH 14.2 % (11.5-14.5); WHITE BLOOD COUNT 5.5 x10^3/uL (4.0-11.0)
[2019-08-17 10:11] LABS: ALBUMIN 3.4 g/dL (3.4-5.0); CALCIUM 9.1 mg/dL (8.5-10.1); CREATININE 0.9 mg/dL (0.6-1.0); FREE T4 1.01 ng/dL (0.76-1.46); MAGNESIUM 1.5 mg/dL (1.8-2.4); THYROID STIM HORMONE (TSH) 1.253 uIU/mL (0.358-3.74); TOTAL BILIRUBIN 0.4 mg/dL (0.2-1.0); TOTAL PROTEIN 6.7 g/dL (6.4-8.2)
[2019-08-17 10:12] LABS: CHOLESTEROL/HDL RATIO 3.3
[2019-08-18 02:07] LABS: HEMOGLOBIN A1C 5.5 % (4.8-5.6)
== END ==
LOC: LAB 09:22
PROVIDERS: ATTEND Nurse Practitioner
DX: Z12.4 Encounter for screening for malignant neoplasm of cervix (principal); Z00.00 Encounter for general adult medical examination without abnormal findings; E03.9 Hypothyroidism, unspecified; R25.2 Cramp and spasm
CPT/HCPCS: 36415; 80053; 80061; 82728; 83036; 83735; 84439; 84443; 85025; 88175

== ENCOUNTER → 2019-11-27 | Outpatient (CLI) | payer OTHER ==
[~2019-11-27] MED LIST changes: +ACET325T9 PO; +MAGN250T10 PO; +OXYC5CAP PO; +WARF-31 PO
--- NOTE | 2019-11-27 11:56 | EKG ---
[facility] [address] [place] [address] Test Date: 2019-11-27 Test Time: 11:55:49 Pat Name: BRYN MOE Department: Room: Gender: F Manager Heart Failure: : 1955 Requested By: KRISTINA DUPONT Order Number: [id number] Reading MD: Caleb Nieves MD Measurements Intervals [place] Rate: 66 P: 31 NV: 166 QRS: 5 QRSD: 82 T: 41 QT: 398 QTc: 419 Interpretive Statements SINUS RHYTHM POOR R WAVE PROGRESSION Electronically Signed On 11-30-2019 11:41:45 CDT by Caleb Nieves MD
[2019-11-27 12:00] LABS: BASO % 1 % (0-3); EOS # 0.1 x10^3/uL (0.0-0.7); EOS % 2 % (0-3); HEMATOCRIT 41.9 % (36.0-47.0); LYMPH # 2.3 x10^3/uL (1.0-4.8); LYMPH % 44 % (24-48); MEAN CORPUSCULAR HEMOGLOBIN 30 pg (25-35); MEAN CORPUSCULAR HGB CONC 33 g/dL (31-37); MEAN CORPUSCULAR VOLUME 91 fL (79-100); MONO # 0.4 x10^3/uL (0.0-1.1); MONO % 8 % (0-9); NEUT # 2.4 x10^3/uL (1.8-7.7); NEUT % 45 % (31-73); PLATELET COUNT 186 x10^3/uL (140-400); RED BLOOD COUNT 4.59 x10^6/uL (3.50-5.40); RED CELL DISTRIBUTION WIDTH 13.9 % (11.5-14.5); WHITE BLOOD COUNT 5.2 x10^3/uL (4.0-11.0)
[2019-11-27 12:09] LABS: PROTHROMBIN TIME PATIENT 12.5 SEC (11.7-14.0)
[2019-11-27 12:16] LABS: ALBUMIN 3.5 g/dL (3.4-5.0); C-REACTIVE PROTEIN 1.9 mg/L (0-3.3); CALCIUM 8.9 mg/dL (8.5-10.1); CREATININE 0.9 mg/dL (0.6-1.0); POTASSIUM 4.1 mmol/L (3.5-5.1)
--- NOTE | 2019-11-27 12:48 | RAD ---
EXAM: Chest, 2 views HISTORY: Preoperative evaluation. COMPARISON: None. FINDINGS: 2 views of the chest are obtained. There is no infiltrate, pleural effusion or pneumothorax. The heart is normal in size. IMPRESSION: No acute pulmonary finding. Electronically signed by: Vera Rivera MD (11/27/2019 12:45 PM) [id number]
[2019-11-28 01:08] LABS: HEMOGLOBIN A1C 5.5 % (4.8-5.6)
== END ==
LOC: SURGPAT 11:22
PROVIDERS: ATTEND Orthopaedic Surgery
DX: Z01.818 Encounter for other preprocedural examination (principal); M17.12 Unilateral primary osteoarthritis, left knee
CPT/HCPCS: 36415; 71046; 80048; 82040; 82306; 83036; 85025; 85610; 85730; 86140; 87641; 93005

== ENCOUNTER → 2019-12-08 | Outpatient (CLI) | payer OTHER ==
[~2019-12-08] MED LIST changes: -OXYC5CAP PO
== END | disposition home or self-care (01) ==
LOC: LAB 13:08
PROVIDERS: ATTEND Orthopaedic Surgery
DX: Z11.59 Encounter for screening for other viral diseases (principal)
CPT/HCPCS: U0003-CS

== ENCOUNTER 2019-12-12 09:55 | Inpatient (IN) | payer OTHER ==
[2019-12-12] VITALS (7 sets, daily range): BP systolic 104–161; BP diastolic 65–92
[~2019-12-12] VITALS: Ht 162.6 cm; Wt 112.0 kg
[~2019-12-12 09:55] MED LIST changes: +ACETAMINOPHEN 500 MG TABLET PO PRN; +DEXAMETHASONE SOD PHOS 4 MG/ML VIAL ONE; +FAMOTIDINE 20 MG/2 ML VIAL ONE; +GABAPENTIN 300 MG CAPSULE. PO PRN; +HYDROmorphone 2 MG/ML VIAL IV PRN; +IV RINGERS,LACTATED 1000ML 1,000 ML IV SCH; +KETOROLAC 30MG VIAL 30 MG, ROPIVacaine 0.5% PF 60 ML, EPINEPHrine 0.5 MG in IV NORMAL S... INJ ONE; +LIDOCAINE 1% PF 2 ML VIAL. ID PRN; +LIDOCAINE 2% PF 5 ML VIAL. ONE; +MELOXICAM 7.5 MG TABLET PO PRN; +MIDAZOLAM HCL/PF 2 MG/2 ML VIAL. ONE; +MORPHINE SULFATE 2 MG/ML VIAL. IV PRN; +ONDANSETRON PF 4 MG/2 ML VIAL. IV PRN; +ONDANSETRON PF 4 MG/2 ML VIAL. ONE; +PROCHLORPERAZINE 10 MG/2 ML VIAL. IV PRN; +PROPOFOL 10 MG/ML (20ML) VIAL. IV ONE; +TRANEXAMIC ACID 1,000 MG in IV NS 50ML -- 1ST BAG INJ ONE; +TRANEXAMIC ACID 1,000 MG in IV NS 50ML -- 2ND BAG INJ ONE; -WARF-31 PO; +ceFAZolin 2GM PREMIX 2 GM/50 ML BAG IV ONE; +fentaNYL PF VIAL 100 MCG/2 ML VIAL IV PRN; +fentaNYL PF VIAL 100 MCG/2 ML VIAL ONE
[2019-12-12] MEDS ORDERED: WARF-31 PO (11:04)
[2019-12-12 11:16] LABS: PROTHROMBIN TIME PATIENT 12.3 SEC (11.7-14.0)
[2019-12-12] MEDS ORDERED: IV NORMAL SALINE 1000ML BAG 1,000 ML IV SCH (11:20)
[2019-12-12] MEDS ORDERED: diphenhydrAMINE 50 MG/ML VIAL IVP PRN (11:30)
[2019-12-12] MEDS ORDERED: CALCIUM CARBONATE 500 MG TAB.CHEW PO PRN (11:30)
[2019-12-12] MEDS ORDERED: ZOLPIDEM 5 MG TABLET. PO PRN (11:30)
[2019-12-12] MEDS ORDERED: MORPHINE SULFATE 2 MG/ML VIAL. IVP PRN (11:30)
[2019-12-12] MEDS ORDERED: 0.9 % SODIUM CHLORIDE 10 ML DISP.SYRIN. IV PRN (11:30)
[2019-12-12] MEDS ORDERED: DEXTROSE 50% 25 GM / 50ML DISP.SYRIN. IV PRN (11:30)
[2019-12-12] MEDS ORDERED: fentaNYL PF VIAL 100 MCG/2 ML VIAL IVP PRN (11:30)
[2019-12-12] MEDS: ONDANSETRON ODT 4 MG TAB.RAPDIS. PO SCH ×2 (12:00→18:00)
[2019-12-12] MEDS: ONDANSETRON PF 4 MG/2 ML VIAL. IVP SCH ×2 (12:00→16:58)
[2019-12-12] MEDS ORDERED: VANCOMYCIN 1 GM VIAL. ONE (12:12)
[2019-12-12] MEDS ORDERED: SEVOFLURANE 61 TO 120 MINUTES. IH ONE (12:30)
[2019-12-12] MEDS ORDERED: fentaNYL PF VIAL 100 MCG/2 ML VIAL ONE (13:39)
--- NOTE | 2019-12-12 13:42 | RAD ---
Two-view left knee dated 12/12/2019. No comparison available. CLINICAL INDICATION: Post knee arthroplasty. FINDINGS: 2 views left knee show interval total neoplastic. Femoral and tibial components are intact. No periprosthetic fracture or malalignment. Diffuse soft tissue swelling and soft tissue gas with suprapatellar drain in place. IMPRESSION: Status post left knee arthroplasty. Electronically signed by: Shashank Polk MD (12/12/2019 1:40 PM) AMINAH
[2019-12-12] MEDS: fentaNYL PF VIAL 100 MCG/2 ML VIAL IV PRN ×2 (13:43→14:02)
[2019-12-12] MEDS ORDERED: MORPHINE SULFATE 2 MG/ML VIAL. ONE (14:28)
--- NOTE | 2019-12-12 14:42 | PDOC4 ---
Operative Note Operative Note Date of surgery: 12/12/2019 Preoperative diagnosis: Degenerative joint disease left knee Postoperative diagnosis: Same Operative procedure: Left total knee arthroplasty Surgeon: Amado Hightower educational/development assistant Anesthesia: General Estimated blood loss: 75 cc Complications: None Specimens: Cartilage surfaces to pathology Drains: Hemovac drain and intra-articular catheter left knee Operative indications: Please see my orthopedic clinic note for detailed operative indications and note that she has severe knee pain and degenerative changes unresponsive to nonoperative treatment. She has excellent results from a previous right total knee arthroplasty. I had gone over and reviewed with her the risks benefits postoperative course of total knee arthroplasty including the possibility of infection premature wear or loosening continued pain instability nerve or blood vessel damage medical or other anesthetic complications among others and she wishes to proceed with surgical evaluation and treatment. Operative text: Patient was identified procedure verified patient placed in the supine position on the operating table. After adequate amounts of general anesthesia were administered the left lower extremity was prepped and draped in standard sterile fashion with a thigh tourniquet. After timeout was performed patient procedure identified and verified the left leg was exsanguinated by Esmarch bandage tourniquet inflated to 350 mmHg a midline incision was made with a medial approach mid vastus. Patella was everted fat pad was excised and the ACL was excised. The femur was drilled and the femoral cutting guide was set for a standard distal cut and sizing carried out to a size 4 femoral component. AP and chamfer cuts were then made. Tibial cut was made with the tibial cutting guide reference to the second toe and recut an additional 4 mm and then flexion extension gaps were verified and varus valgus was balanced. Tibia was then drilled and broached with a size 3 tibial component and the femoral box cut was made and trialing carried out showing excellent balance and stability. The patella was relatively well preserved and therefore not resurfaced. Thorough irrigation carried out with normal saline solution following removal of components bleeding points were controlled by electrocautery and the following components were cemented in place with polymethylmethacrylate cement: A size 3 journey tibial component, a size 4 posterior stabilized Oxinium femoral component with a temporary spacer and the knee held in extension excess cement was removed Hemovac drain and pain catheter were placed the pain catheter mixture was injected around the joint capsule and subperiosteally. Trial component was then removed and an 11 mm posterior stabilized articular insert was locked in place. Knee joint was then irrigated with a dilute Betadine mixture which was washed with normal saline solution and pulse lavage 1 g of vancomycin was placed in the knee joint and the sub-vastus approach was closed with #1 PDS strata fix suture. Subcutaneous closure with buried Vicryl sutures subcuticular 3-0 strata fix Monocryl followed by a jose dressing. Toes were noted to be warm pink following deflation of the tourniquet. Patient was returned to recovery room in stable condition having tolerated the procedure well. Mukund azul was present for the procedure and assisted in the positioning prepping and draping retraction closure and dressing placement. KRISTINA DUPONT MD Dec 12, 2019 14:42
--- NOTE | 2019-12-12 15:00 | NUR ---
Patient arrived around 1445 in a bed from PACU. TATE hose on RLE with SCD, an DESTINEE on the LLE, HALINA dressing wrapped with JAVI wrap CDI, hemovac and IAC in place. She was drowsy upon admission but alert with at bedside. Got patient up to the toilet immediately and back to bed without any concerns or complications noted. Vital signs stable. Pain medication given from [facility] prior to transfer but patient is rating it around a five-no more medication given at that time. Will continue to monitor.
[2019-12-12] MEDS ORDERED: WARFARIN 7.5 MG TABLET. PO ONE (16:00)
[2019-12-12] MEDS: FERROUS SULFATE 325 MG TABLET. PO SCH (16:56)
[2019-12-12] MEDS: PANTOPRAZOLE 40 MG TABLET.DR. PO SCH (16:57)
[2019-12-12] MEDS: oxyCODONE IR 5 MG TABLET PO PRN (17:03)
[2019-12-12] MEDS: KETOROLAC 30MG VIAL 30 MG, BUPIVACAINE MPF 0.25% 20 ML, EPINEPHrine 0.5 MG in TOTAL VOL... INT ART SCH (17:06)
[2019-12-12] MEDS: ATORVASTATIN CALCIUM 40 MG TABLET. PO SCH (21:28)
[2019-12-13 03:15] VITALS: BP 98/52
[2019-12-13 03:30] VITALS: BP 129/57
[2019-12-13] MEDS: KETOROLAC 30MG VIAL 30 MG, BUPIVACAINE MPF 0.25% 20 ML, EPINEPHrine 0.5 MG in TOTAL VOL... INT ART SCH (05:47)
[2019-12-13] MEDS: ONDANSETRON ODT 4 MG TAB.RAPDIS. PO SCH ×2 (05:53)
[2019-12-13] MEDS: traMADol 50 MG TABLET PO SCH ×3 (05:54→17:55)
[2019-12-13 05:55] LABS: HEMATOCRIT 39.4 % (36.0-47.0); HEMOGLOBIN 13.3 g/dL (12.0-15.5)
[2019-12-13] MEDS: ONDANSETRON PF 4 MG/2 ML VIAL. IVP SCH ×2 (06:00)
[2019-12-13] MEDS ORDERED: MAGNESIUM HYDROXIDE 2,400 MG/30 ML ORAL.SUSP. PO PRN (06:00)
[2019-12-13] MEDS: GABAPENTIN 100 MG CAPSULE. PO SCH ×3 (06:00→22:00)
[2019-12-13 06:04] LABS: PROTHROMBIN TIME PATIENT 14.2 SEC (11.7-14.0)
[2019-12-13] MEDS: LEVOTHYROXINE 150 MCG TABLET PO SCH (06:18)
[2019-12-13 06:21] VITALS: BP 136/71
[2019-12-13] MEDS: PANTOPRAZOLE 40 MG TABLET.DR. PO SCH (07:24)
[2019-12-13] MEDS: oxyCODONE IR 5 MG TABLET PO PRN (08:09)
[2019-12-13] MEDS: FERROUS SULFATE 325 MG TABLET. PO SCH ×2 (08:10→16:47)
[2019-12-13] MEDS: CHOLECALCIFEROL (VITAMIN D3) 1,000 UNIT TABLET PO SCH (08:10)
[2019-12-13] MEDS: MELOXICAM 7.5 MG TABLET PO SCH (08:10)
[2019-12-13] MEDS: MULTIVITAMIN with MINERAL TABLET. PO SCH (08:10)
[2019-12-13] MEDS: ACETAMINOPHEN 500 MG TABLET PO SCH ×3 (08:11→22:05)
[2019-12-13] MEDS: SENNOSIDES/DOCUSATE 8.6/50MG TABLET. PO SCH (08:11)
--- NOTE | 2019-12-13 08:30 | NUR ---
Andreia is up in recliner for breakfast. she has good sensation, pulses and motion bilateral lower extremities. Hemovac is patent. "IAC helped with her pain. getting ready for class.
--- NOTE | 2019-12-13 08:38 | PDOC ---
PROGRESS NOTES Date of Service DATE: 12/13/19 TIME: 08:36 Subjective Subjective Problems overnight: Doing very well overall she says the left knee feels good and is doing much better than the right did this soon after surgery Objective Vital Signs Vital Signs Date Time Temp Pulse Resp B/P (MAP) Pulse Ox O2 Delivery O2 Flow Rate FiO2 12/13/19 06:21 98.4 78 22 136/71 (92) 94 Nasal Cannula 2.0 98.4 Physical Exam Saqib dressing clean dry intact she has good early range of motion patellofemoral tracking and ligament balance distal neurovascular status intact Labs Laboratory Tests Test 12/12/19 10:30 12/13/19 04:25 Prothrombin Time 12.3 SEC (11.7-14.0) 14.2 SEC (11.7-14.0) Prothromb Time International Ratio 1.0 (0.8-1.1) 1.1 (0.8-1.1) Activated Partial Thromboplast Time 26 SEC (24-38) Hemoglobin 13.3 g/dL (12.0-15.5) Hematocrit 39.4 % (36.0-47.0) Mean Corpuscular Hemoglobin Concent 34 g/dL (31-37) Laboratory Tests Test 12/12/19 10:30 12/13/19 04:25 Prothrombin Time 12.3 SEC (11.7-14.0) 14.2 SEC (11.7-14.0) Prothromb Time International Ratio 1.0 (0.8-1.1) 1.1 (0.8-1.1) Activated Partial Thromboplast Time 26 SEC (24-38) Hemoglobin 13.3 g/dL (12.0-15.5) Hematocrit 39.4 % (36.0-47.0) Mean Corpuscular Hemoglobin Concent 34 g/dL (31-37) Assessment Assessment POD#1 left total knee arthroplasty Plan Plan of Care Continue mobilize with physical therapy Coumadin anticoagulation Justicifation of Admission Dx: Justifications for Admission: Justification of Admission Dx: N/A KRISTINA DUPONT MD Dec 13, 2019 08:38
[2019-12-13] MEDS ORDERED: ONDANSETRON PF 4 MG/2 ML VIAL. IVP PRN (12:00)
--- NOTE | 2019-12-13 15:27 | NUR ---
Pharmacy Warfarin Dosing Note S:Pharmacy consulted to assist with anticoagulation therapy started 12/12/19 with target INR: 1.6 - 2.5 O:BRYN MOE is a 64 year old F with TKA LABS: Last INR: 1.1 Last HGB: 13.3 Last HCT: 39.4 Last PLT: Last dose of 7.5 mg given on 12/12/19 at 1651 Previous Regimen: Vitamin K given: N Drug Interaction Changes: Ongoing Drug Interactions: A:INR of 1.1 is below desired range. Target range for this patient is: 1.6 - 2.5 P: Warfarin dose: 5 mg Today at 1600. Bridge Therapy: None Next INR due tomorrow. Pharmacy anticoagulation service will continue to follow. Jonathan Downs [facility], 12/13/19 1029
[2019-12-13] MEDS ORDERED: WARFARIN 5 MG TABLET. PO ONE (16:00)
[2019-12-13] MEDS ORDERED: BISACODYL 10 MG SUPP.RECT. PR PRN (16:00)
[2019-12-13 18:36] VITALS: BP 115/70
[2019-12-13] MEDS: ATORVASTATIN CALCIUM 40 MG TABLET. PO SCH (22:04)
--- NOTE | 2019-12-13 22:05 | NUR ---
Johana held Patient taking Tramadol.
[2019-12-14] MEDS: traMADol 50 MG TABLET PO SCH ×5 (00:04→22:03)
[2019-12-14] MEDS: ACETAMINOPHEN 500 MG TABLET PO SCH ×4 (03:07→20:22)
[2019-12-14] MEDS: oxyCODONE IR 5 MG TABLET PO PRN ×2 (03:07→16:44)
[2019-12-14] MEDS: PANTOPRAZOLE 40 MG TABLET.DR. PO SCH (06:19)
[2019-12-14] MEDS: LEVOTHYROXINE 150 MCG TABLET PO SCH (06:19)
[2019-12-14] MEDS: GABAPENTIN 100 MG CAPSULE. PO SCH ×3 (06:19→22:03)
[2019-12-14 06:26] VITALS: BP 120/54
[2019-12-14 07:06] LABS: HEMATOCRIT 37.7 % (36.0-47.0); HEMOGLOBIN 12.6 g/dL (12.0-15.5)
[2019-12-14 07:08] LABS: PROTHROMBIN TIME PATIENT 19.3 SEC (11.7-14.0)
[2019-12-14] MEDS: ONDANSETRON ODT 4 MG TAB.RAPDIS. PO PRN ×2 (07:41→16:43)
[2019-12-14] MEDS: CHOLECALCIFEROL (VITAMIN D3) 1,000 UNIT TABLET PO SCH ×2 (07:41→09:00)
[2019-12-14] MEDS: SENNOSIDES/DOCUSATE 8.6/50MG TABLET. PO SCH (07:42)
[2019-12-14] MEDS: MULTIVITAMIN with MINERAL TABLET. PO SCH ×2 (07:42→09:00)
[2019-12-14] MEDS: MELOXICAM 7.5 MG TABLET PO SCH (07:42)
[2019-12-14] MEDS: FERROUS SULFATE 325 MG TABLET. PO SCH ×3 (07:42→17:00)
--- NOTE | 2019-12-14 08:00 | NUR ---
doesn't feel good; nauseated Zofran given. allowed to rest. medications and breakfast held. HALINA dressing remains clean and dry
--- NOTE | 2019-12-14 10:30 | NUR ---
awakened and went to rehab. still feels a little queasy.
--- NOTE | 2019-12-14 11:23 | NUR ---
Pharmacy Warfarin Dosing Note S:Pharmacy consulted to assist with anticoagulation therapy started 12/12/19 with target INR: 1.6 - 2.5 O:BRYN MOE is a 64 year old F with TKA LABS: Last INR: 1.7 Last HGB: 12.6 Last HCT: 39.4 Last PLT: Last dose of 5 mg given on 12/13/19 at 1651 Previous Regimen: Vitamin K given: N Drug Interaction Changes: Ongoing Drug Interactions: A:INR of 1.7 is within desired range. Target range for this patient is: 1.6 - 2.5 P: Warfarin dose: 3 mg Today at 1600 Bridge Therapy: None Next INR due IN AM Pharmacy anticoagulation service will continue to follow. [facility], 12/14/19 1124
--- NOTE | 2019-12-14 13:00 | NUR ---
continues to be nauseated . ate lunch poorly. was given zofran iv; went to rehab; tolerated fair
[2019-12-14] MEDS ORDERED: WARFARIN 3 MG TABLET. PO ONE (16:00)
--- NOTE | 2019-12-14 17:07 | PATHOLOGY ---
[facility] Accession Number: [id number] . 01 Material submitted: . knee - LEFT KNEE BONE. Modifiers: left . 01 Clinical history: . Osteomyelitis; OA . 02 Diagnosis: Segments of bone and soft tissue, left total knee arthroplasty: - Advanced degenerative arthritis. (JPM:[facility]; 12/14/2019) QMS 12/14/2019 1157 Local . 02 Electronically signed: . Ahsan Gonzáles MD, Pathologist NPI- [id number] . 01 Gross description: . The specimen is received in formalin, labeled "Andreia Jameson, left knee bone". Received are multiple segments of bone, including the tibial plateau, admixed with soft tissue measuring 9.8 x 8.2 x 2.9 cm in aggregate dimensions. Meniscus is absent. The articular surfaces are smooth to granular in appearance with evidence of eburnation. The specimen is submitted representatively in cassette A1, following decalcification. (CAA; 12/12/2019) QAC/QAC 12/12/2019 1807 Local . 02 Pathologist provided ICD-10: M17.12 . 02 CPT . 723472, 239199 Specimen Comment: A courtesy copy of this report has been sent to [phone], [phone] Specimen Comment: [id number] Specimen Comment: Report sent to / DR BALL Performed at: 01 [facility] [address] [facility] [address], [place] [id number] MD Wilbert Jasmine MD Phone: [phone] Performed at: 02 [facility] [address], [place] [id number] MD Ahsan Gonzáles MD Phone: [phone]
--- NOTE | 2019-12-14 19:00 | NUR ---
given Zofran prior to supper and tolerated supper well. medigrips applied bilaterally
[2019-12-14 19:54] VITALS: BP 107/64
[2019-12-14] MEDS: ATORVASTATIN CALCIUM 40 MG TABLET. PO SCH (20:21)
[2019-12-15] MEDS: ACETAMINOPHEN 500 MG TABLET PO SCH ×3 (01:48→15:32)
[2019-12-15 05:51] VITALS: BP 120/56
[2019-12-15] MEDS: PANTOPRAZOLE 40 MG TABLET.DR. PO SCH (06:14)
[2019-12-15] MEDS: GABAPENTIN 100 MG CAPSULE. PO SCH ×2 (06:14→15:32)
[2019-12-15] MEDS: LEVOTHYROXINE 150 MCG TABLET PO SCH (06:15)
[2019-12-15] MEDS: traMADol 50 MG TABLET PO SCH ×2 (06:15→11:47)
--- NOTE | 2019-12-15 06:41 | PDOC ---
PROGRESS NOTES Date of Service DATE: 12/15/19 TIME: 06:37 Delayed entry from rounding on 12/14/2019 about 9:45 PM Subjective Subjective Problems overnight: Experiencing severe nausea earlier today starting to resolve with change in medications Objective Vital Signs Vital Signs Date Time Temp Pulse Resp B/P (MAP) Pulse Ox O2 Delivery O2 Flow Rate FiO2 12/15/19 06:15 18 Room Air 12/15/19 05:51 98.0 72 120/56 (77) 97 98.0 12/13/19 06:21 2.0 Physical Exam Examination shows mild expected swelling good range of motion patellofemoral tracking ligament stability intact distal neurovascular status jose dressing intact without visible drainage Labs Laboratory Tests Test 12/14/19 06:20 12/14/19 06:25 Hemoglobin 12.6 g/dL (12.0-15.5) Hematocrit 37.7 % (36.0-47.0) Mean Corpuscular Hemoglobin Concent 33 g/dL (31-37) Prothrombin Time 19.3 SEC (11.7-14.0) Prothromb Time International Ratio 1.7 (0.8-1.1) Assessment Assessment POD#2 total knee arthroplasty Plan Plan of Care Nausea starting to resolve with change in medications Continue Coumadin anticoagulation Continue mobilize with physical therapy Justicifation of Admission Dx: Justifications for Admission: Justification of Admission Dx: Yes Comments: Severe nausea requiring adjustment in medications KRISTINA DUPONT MD Dec 15, 2019 06:41
[2019-12-15 06:58] LABS: HEMATOCRIT 34.6 % (36.0-47.0); HEMOGLOBIN 11.4 g/dL (12.0-15.5)
[2019-12-15 07:27] LABS: PROTHROMBIN TIME PATIENT 19.1 SEC (11.7-14.0)
--- NOTE | 2019-12-15 08:00 | NUR ---
Nakita feeling much better today. she is able to eat breakfast without Zofran and pain controlled with oral medications.
[2019-12-15] MEDS: CHOLECALCIFEROL (VITAMIN D3) 1,000 UNIT TABLET PO SCH (08:26)
[2019-12-15] MEDS: SENNOSIDES/DOCUSATE 8.6/50MG TABLET. PO SCH (08:27)
[2019-12-15] MEDS: MULTIVITAMIN with MINERAL TABLET. PO SCH (08:27)
[2019-12-15] MEDS: MELOXICAM 7.5 MG TABLET PO SCH (08:27)
[2019-12-15] MEDS: FERROUS SULFATE 325 MG TABLET. PO SCH (08:27)
[2019-12-15] MEDS: oxyCODONE IR 5 MG TABLET PO PRN ×3 (08:31→15:33)
--- NOTE | 2019-12-15 12:47 | NUR ---
Pharmacy Warfarin Dosing Note S:Pharmacy consulted to assist with anticoagulation therapy started 12/12/19 with target INR: 1.6 - 2.5 O:BRYN MOE is a 64 year old F with TKA LABS: Last INR: 1.6 Last HGB: 12.6 Last HCT: 39.4 Last PLT: Last dose of 3 mg given on 12/14/19 at 1651 Previous Regimen: Vitamin K given: N Drug Interaction Changes: Ongoing Drug Interactions: A:INR of 1.6 is within desired range. Target range for this patient is: 1.6 - 2.5 P: Warfarin dose: 5 mg Today at 1600 Bridge Therapy: None Next INR due on wednesday Pharmacy anticoagulation service will continue to follow. BULL RUFF RPH, 12/15/19 [id number]
[2019-12-15 13:38] VITALS: BP 125/54
[2019-12-15] MEDS ORDERED: OXYC5CAP PO (13:57)
--- NOTE | 2019-12-15 13:58 | DISCH ---
DISCHARGE INSTRUCTIONS Condition on Discharge Condition on Discharge: Stable Activity After Discharge Activity Instructions for Disc: Walk in house Other activity instructions: USE WALKER AT ALL TIMES UNTIL RELEASED BY THERAPIST Bathing Instructions: Shower-keep dressing dry, No Tub Bath until see Lifting Instructions after Dis: No heavy lifting, No pulling or pushing, Do not lift >10 pounds Exercise Instruction after Dis: Exercise per therapy Driving Instructions after Dis: Do not drive Weight Bearing Status after Di: No restrictions, Full weight bearing, As tolerated Diet after Discharge Diet after Discharge: Regular Diet Texture: Regular Liquid Texture: Thin Liquid Swallowing Supervision: None needed Wound Incision Care Wound/Incision Care: Ice to area for comfort, Keep wound/cast CDI, Keep wound elevated, Do not change dressing Other wound/incision instructi: REMOVE BATTERY PACK ON MONDAY 12/11 UNSCREW TUBING AND TAPE END DOWN Community/Resources/Services Services at Discharge: PT EVALUATE & TREAT Contacting the after DC Call your doctor for: Concerns you may have Follow-Up Follow Up With: APPT WITH DR. DUPONT AT 0900 Treatment/Equipment after DC Adaptive Equipment Issued: None Comment: PT/INR TO BE DRAWN EVERY WEDNESDAY STARTING 12/10; 12/17 Warfarin Follow-Up Warfarin Follow UP: [facility] COUM[facility]IN ?? CALL [phone] KRISTINA DUPONT MD Dec 15, 2019 13:58
[2019-12-15] MEDS ORDERED: WARFARIN 5 MG TABLET. PO ONE (14:00)
[2019-12-15] MEDS ORDERED: WARF-31 PO (14:28)
--- NOTE | 2019-12-15 15:30 | NUR ---
eviewed discharge instructions with Andreia and . reiviewed restrictions to activities of daily living such as bathing, driving, incisional care and new medications such as lor and coumadin and theri side effects. she will be going to [facility] for pt and lab draws. verbalized understanding of these instructions
== END 2019-12-15 16:00 | disposition home or self-care (01) | DRG 470 ==
LOC: SURG 09:55 → 4 SOUTHEST 15:06 → OBSVTOIN 12-14 11:50
PROVIDERS: ADMIT Orthopaedic Surgery; ATTEND Orthopaedic Surgery
PROC: 0SRD069 Replacement of Left Knee Joint with Oxidized Zirconium on Polyethylene Synthetic Substitute, Cemented, Open Approach (ICD-10-PCS; principal; 2019-12-12 11:30)
DX: M17.12 Unilateral primary osteoarthritis, left knee (principal); Z96.653 Presence of artificial knee joint, bilateral
CPT/HCPCS: 36415; 73560; 85014; 85018; 85610; 85730; 86850; 86900; 86901; A7015; C1713; G0378; G0379; J0171; J0690; J1100; J1885; J2250; J2270; J2405; J2704; J2795; J3010; J3370; J3490; J7030; 97116-GP; 97150-GP; 97535-GO; C1769

== ENCOUNTER → 2020-11-14 | Outpatient (CLI) | payer MEDICARE ==
[~2020-11-14] MED LIST changes: -ACETAMINOPHEN 500 MG TABLET PO PRN; -DEXAMETHASONE SOD PHOS 4 MG/ML VIAL ONE; -FAMOTIDINE 20 MG/2 ML VIAL ONE; -GABAPENTIN 300 MG CAPSULE. PO PRN; -HYDROmorphone 2 MG/ML VIAL IV PRN; -IV RINGERS,LACTATED 1000ML 1,000 ML IV SCH; -KETOROLAC 30MG VIAL 30 MG, ROPIVacaine 0.5% PF 60 ML, EPINEPHrine 0.5 MG in IV NORMAL S... INJ ONE; -LIDOCAINE 1% PF 2 ML VIAL. ID PRN; -LIDOCAINE 2% PF 5 ML VIAL. ONE; -LISI-334 PO; +LISI20TA18 PO; -MELOXICAM 7.5 MG TABLET PO PRN; -MIDAZOLAM HCL/PF 2 MG/2 ML VIAL. ONE; -MORPHINE SULFATE 2 MG/ML VIAL. IV PRN; -ONDANSETRON PF 4 MG/2 ML VIAL. IV PRN; -ONDANSETRON PF 4 MG/2 ML VIAL. ONE; +OXYC5CAP PO; -PROCHLORPERAZINE 10 MG/2 ML VIAL. IV PRN; -PROPOFOL 10 MG/ML (20ML) VIAL. IV ONE; -TRANEXAMIC ACID 1,000 MG in IV NS 50ML -- 1ST BAG INJ ONE; -TRANEXAMIC ACID 1,000 MG in IV NS 50ML -- 2ND BAG INJ ONE; +WARF-31 PO; -ceFAZolin 2GM PREMIX 2 GM/50 ML BAG IV ONE; -fentaNYL PF VIAL 100 MCG/2 ML VIAL IV PRN; -fentaNYL PF VIAL 100 MCG/2 ML VIAL ONE
--- NOTE | 2020-11-14 15:47 | KCIC ---
Bilateral digital screening mammograms with 3-D tomosynthesis: Reason for examination: Routine screening. Comparison is made to previous studies dated back to 03/29/2015. Bilateral mammograms in CC and oblique projections were obtained with 2-D imaging and 3-D tomosynthes is imaging on a Siemens Inspiration unit and reviewed on the workstation. Interpretation was made wit h the benefit of CAD. The skin and nipples show no abnormalities. No abnormal axillary lymph nodes are seen. The breast par enchyma is predominantly fatty. (Breast density: Category A.) There are no dominant masses, suspiciou s calcifications or architectural distortion. Benign calcifications are present. Impression: No evidence of malignancy. Recommend routine screening. BI-RAD Category 2: Benign. "Our facility is accredited by the [employer] Mammography Program." This patient's information has been entered into a reminder system for the patient to be notified wit h the results of her examination and a target date for the next mammogram. Electronically signed by: Cehri Barahona MD (11/14/2020 3:45 PM) [id number]
== END ==
LOC: KCIC MAMMO 12:30
PROVIDERS: ATTEND Family Medicine
DX: Z12.31 Encounter for screening mammogram for malignant neoplasm of breast (principal)
CPT/HCPCS: 77063; 77067